=== PATIENT | female | born 1965 | race Caucasian/White ===

== ENCOUNTER 2024-10-25 17:05 | Inpatient (IN) | payer BC, MEDICAID ==
[~2024-10-25] VITALS: Ht 165.1 cm; Wt 85.2 kg
[~2024-10-25 17:05] MED LIST: ATOR10TA70 PO; BACL20TA PO; BUDE10.2 INH; CARV3.122 PO; CEFD300C3 PO; ESCI20TA39 PO; EZET10TA48 PO; FURO-150 PO; LISI30TA4 PO; TRAZ-251 PO; VITE1000C PO
--- NOTE | 2024-10-25 17:21 | Physician Documentation ---
History of Present Illness ~ Stated Complaint: SOB Time Seen by MD: 17:12 HPI 58Year old female with a history of pneumonia presents to be presents via EMS for concerns over hypoxia diarrhea and vomiting x2 days. EMS indicated they had a hard time getting an SpO2 upon arrival due to patient's extremities being cold. Put her on supplemental oxygen 2 L/min and was able to get the patient's SpO2 to read around 90-95.Pt.was tripoding a upon arrival Medication Reconciliation Allergies: Coded Allergies: codeine (Verified Allergy, Intermediate, RASH, 01/24/24) hydrocodone (Verified Adverse Reaction, Mild, "WIRES ME OUT", 01/24/24) Scheduled Atorvastatin Calcium (Atorvastatin Calcium), 1 TAB PO HS, (Reported) Baclofen (Baclofen), 1 TAB PO HS, (Reported) Carvedilol (Coreg), 1 TAB PO Q12H, (Reported) Furosemide (Lasix), 20 MG PO DAILY Melatonin (Melatonin), 1 TAB PO HS, (Reported) Trazodone HCl (Trazodone HCl), 1 TAB PO HS, (Reported) Vitamin E (VITAMIN E capsule), 1,000 UNIT PO DAILY, (Reported) Scheduled PRN Acetaminophen (Acetaminophen), 1 TAB PO Q6H PRN PRN for pain or fever, (Reported) Miscellaneous Medications Celecoxib (Celebrex), 200 MG PO, (Reported) Discontinued Medications Acetaminophen (Tylenol), 1 TAB PO QDAY PRN PRN for pain or fever, (Reported) Discontinued Reason: Prescription changed Budesonide/Formoterol Fumarate (Symbicort 160-4.5 Mcg Inhaler), 2 PUFFS INH Q12H Discontinued Reason: patient no longer taking Cefdinir (Cefdinir), 1 CAP PO Q12H Discontinued Reason: patient no longer taking Escitalopram Oxalate* (Lexapro*), 1 TAB PO DAILY, (Reported) Discontinued Reason: patient no longer taking Ezetimibe (Ezetimibe), 1 TAB PO DAILY, (Reported) Discontinued Reason: patient no longer taking Lisinopril (Lisinopril), 1 TAB PO DAILY Discontinued Reason: patient no longer taking Review of Systems All Other Systems at this time: Reviewed and Negative ROS As stated above in the HPI, otherwise all systems are reviewed and negative. Physical Exam Physical Exam General: Alert and ill-appearing the increased respiratory effort Respiratory: Moderate respiratory distress, diminished bilaterally with crackles on the right side Cardiovascular: Regular rate and rhythm, no murmurs. Gastrointestinal: Soft, nontender, nondistended. Bowels sounds present. Extremities: Cold extremities Neurologic: Oriented x4. Psychiatric: Normal mood and affect. Skin: Normal color, warm and dry. No edema, no ecchymosis. Progress Results/Orders Results/Orders Orders - VERO VASQUES STONEMASON HELPER Monitor (10/25/24 17:14) Saline Lock (10/25/24 17:14) Oxygen (10/25/24 17:14) Chest,Two Views (10/25/24 17:57) Culture Blood (10/25/24 17:21) Svn Treatment (10/25/24 17:23) Piperacillin/Tazo 4.5gm/100ml (Zosyn 4.5 (10/25/24 20:00) Page Hospitalist (10/25/24 ) Page Hospitalist (10/25/24 ) Heparin 10,000 Unit/Ml 1ml (Heparin 10,0 (10/25/24 19:20) Cbc/Diff (10/26/24 03:00) Cbc/Diff (10/27/24 03:00) Cbc/Diff (10/28/24 03:00) Cbc/Diff (10/29/24 03:00) Cbc/Diff (10/30/24 03:00) Completed Orders - VERO VASQUES STONEMASON HELPER Cbc/Diff (10/25/24 17:14) PBNP (10/25/24 17:14) Electrocardiogram (10/25/24 17:14) CMP (10/25/24 17:14) Hs Troponin I W Calculations (10/25/24 17:14) Hs Troponin I W Calculations (10/25/24 19:14) Chest,Two Views (10/25/24 17:57) Lacticsepsis (10/25/24 17:21) Ipratropium/Albuterol Nebule (Ipratrop/A (10/25/24 17:35) Ipratropium/Albuterol Nebule (Ipratrop/A (10/25/24 17:38) Normal Saline 1000ml (Sodium Chloride 10 (10/25/24 18:30) Pt Inr (10/25/24 19:19) PTT (10/25/24 19:19) Cbc/Diff (10/25/24 19:19) Heparin 25,000 Unit/250ml Bag (Heparin 2 (10/25/24 19:20) Medications Received in ER Medications (Trade) Dose Ordered Sig/Polo Route PRN Reason Start Time Stop Time Status Last Admin Dose Admin (ipratrop/ albuterol 0.5-3(2.5) MG/3ml nebule) 3 ml ONCE PRN NEB SOB or wheezing 10/25/24 17:38 10/25/24 21:11 DC 10/25/24 17:42 3 ML (sodium chloride 1000ml IV soln) 2,000 ml ONCE ONCE IVB 10/25/24 18:30 10/25/24 18:31 DC 10/25/24 19:08 2,000 ML (heparin 10,000 unit/ml 1ml inj) bolus for correct... PRN PRN IV per protocol-CARDIAC 10/25/24 19:20 10/25/24 21:21 4,000 UNITS Vital Signs 10/25/24 10/25/24 10/25/24 17:19 17:43 17:49 Temp 84.0 Pulse 75 78 74 Resp 20 19 19 B/P (MAP) 121/84 Pulse Ox 95 94 93 O2 Delivery Nasal Cannula* Nasal Cannula* O2 Flow Rate 4 5 FiO2 36 40 Laboratory Tests Test 10/25/24 17:52 White Blood Count 18.8 H Red Blood Count 4.31 Hemoglobin 15.1 Hematocrit 46.1 H Mean Corpuscular Volume 107.1 H Mean Corpuscular Hemoglobin 35.2 H Mean Corpuscular Hemoglobin Concent 32.8 L Red Cell Distribution Width 15.8 H Platelet Count 256 Mean Platelet Volume 9.8 Neutrophils (%) (Auto) 88.9 H Lymphocytes (%) (Auto) 9.0 L Monocytes (%) (Auto) 1.9 L Eosinophils (%) (Auto) 0 Basophils (%) (Auto) 0.2 Neutrophils # (Auto) 16.7 H Lymphocytes # (Auto) 1.7 Monocytes # (Auto) 0.3 Eosinophils # (Auto) 0.0 Basophils # (Auto) 0.0 CBC Comment Prothrombin Time 10.8 INR International Normalized Ratio 1.1 Activated Partial Thromboplast Time 23 Coagulation Comments Sodium Level 142 Potassium Level 4.4 Chloride Level 103 Carbon Dioxide Level 18.8 L Anion Gap 20 H Blood Urea Nitrogen 23 H Creatinine 2.08 H Estimated GFR/1.73 m2 24 BUN/Creatinine Ratio 11.1 Glucose Level 145 H Lactic Acid Level 5.0 *H Calcium Level 10.4 H Total Bilirubin 0.9 Aspartate Amino Transf (AST/SGOT) 2541 H Alanine Aminotransferase (ALT/SGPT) 1841 H Alkaline Phosphatase 78 Troponin I High Sensitivity 2016 *H Pro-B-Type Natriuretic Peptide 72350 H Total Protein 7.7 Albumin 4.1 Globulin 3.6 Albumin/Globulin Ratio 1.1 Chemistry Comments Medical Decision Making Findings PATIENT'S X-RAY AND CT BOTH INDICATED MULTILOBAR PNEUMONIA. ADDITIONALLY P [facility]ORATORY VALUES SHOWED GROSS ELEVATIONS. PATIENT HAD ELEVATED LACTIC WHITE COUNT IN THE 28. ADDITIONALLY PATIENT HAD ELEVATED TROPONINS AND THE 20+ 1000 PROBNP. LIVER ENZYMES INTO THE TWO THOUSANDS.. REQUESTING IMMEDIATE HOSPITALIZATION. Arnav HERRERA PATIENT ON ZOSYN FOR PNEUMONIA Departure Disposition: ADMITTED INPATIENT Impression: Primary Impression: Respiratory distress Additional Impression: Pneumonia Referrals: NO PRIMARY CARE PROVIDER (PCP) Signature Scribe Signature: s Attestation: The note accurately reflects work and decisions made by me.Vero Vasques - STONEMASON HELPER 10/25/24 17:20 VERO VASQUES NP October 25, 2024 17:21
--- NOTE | 2024-10-25 17:27 | ELECTROCARDIOGRAPH REPORT ---
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 Anand Lazo Measurements Intervals [place] Rate: 69 P: 30 AK: 165 QRS: 9 QRSD: 101 T: 180 QT: 467 QTc: 501 Interpretive Statements Sinus rhythm Borderline low voltage, extremity leads Abnormal T, consider ischemia, diffuse leads Electronically Signed On 10-31-2024 13:45:[address] Anand Lazo Please click the below link to view image of tracing.
[2024-10-25] MEDS ORDERED: ipratropium/albuterol 3ml nebule NEB PRN (17:35)
[2024-10-25] MEDS: ipratropium/albuterol 3ml nebule NEB PRN (17:42)
[2024-10-25 17:43] VITALS: PULSE 78; RESP 19; O2SAT 94
[2024-10-25 17:49] VITALS: PULSE 74; RESP 19; O2SAT 93
--- NOTE | 2024-10-25 18:07 | RADIOLOGY REPORT ---
CHEST RADIOGRAPH Indication: SOB Technique: Frontal and lateral view of the chest was obtained Comparison: None FINDINGS: Lines and Tubes: None Lungs: Multifocal pneumonia throughout both lungs. Pleura: No effusion. No pneumothorax. Cardiomediastinal contours: Unremarkable Bones: Unremarkable IMPRESSION: 1. Multifocal pneumonia throughout both lungs.
[2024-10-25 18:28] LABS: BASOPHILS % (AUTO) 0.2 % (0-1); EOSINOPHILS % (AUTO) 0 % (0-6); HEMATOCRIT 46.1 % (35.0-45.0); HEMOGLOBIN 15.1 g/dl (12.0-16.0); LYMPHOCYTES # (AUTO) 1.7 X10'3 (1.1-4.8); MEAN CORPUSCULAR HEMOGLOBIN 35.2 PG (27.0-31.0); MEAN CORPUSCULAR HGB CONC 32.8 g/dL (33.0-36.5); MEAN CORPUSCULAR VOLUME 107.1 FL (78-98); MEAN PLATELET VOLUME 9.8 FL (7.4-10.4); MONOCYTES # (AUTO) 0.3 X10'3 (0-0.9); MONOCYTES % (AUTO) 1.9 % (2-12); NEUTROPHILS # (AUTO) 16.7 X10'3 (1.8-7.7); NEUTROPHILS % (AUTO) 88.9 % (42-75); PLATELET COUNT 256 X10'3 (140-440); RED BLOOD COUNT 4.31 X10'6 (4.20-5.60); RED CELL DISTRIBUTION WIDTH 15.8 % (11.5-14.5); WHITE BLOOD COUNT 18.8 X10'3 (4.5-11.0)
[2024-10-25 18:49] LABS: ALBUMIN 4.1 G/DL (3.4-5.0); ALBUMIN/GLOBULIN RATIO 1.1 (1.1-1.5); ALKALINE PHOSPHATASE 78 IU/L (46-116); ANION GAP 20 (8-16); BILIRUBIN,TOTAL 0.9 MG/DL (0.1-1.0); BLOOD UREA NITROGEN 23 MG/DL (7-18); BUN/CREATININE RATIO 11.1 (10.0-20.0); CALCIUM 10.4 MG/DL (8.5-10.1); CHLORIDE 103 MMOL/L (99-107); CREATININE 2.08 MG/DL (0.40-0.90); GLUCOSE 145 MG/DL (70-104); POTASSIUM 4.4 MMOL/L (3.5-5.1); PRO BRAIN NATRIURETIC PEPTIDE 26946 PG/ML (0-125); SODIUM 142 MMOL/L (135-145); TOTAL CARBON DIOXIDE 18.8 MMOL/L (24-32); TOTAL PROTEIN 7.7 G/DL (6.4-8.2); eCRCL 26 ML/MIN; eGFR 24 ML/MIN
[2024-10-25 18:54] LABS: ALANINE AMINOTRANSFERASE 1841 U/L (12-78); ASPARTATE AMINO TRANSFERASE 2541 U/L (10-37)
[2024-10-25] MEDS: normal saline 1000ML IV soln IVB ONE (19:08)
[2024-10-25] MEDS ORDERED: magnesium sulf-water 4G/100mL 100 ML IV PRN (19:20)
[2024-10-25] MEDS ORDERED: heparin 10,000 units/1 ML INJ IV ONE (19:20)
[2024-10-25] MEDS ORDERED: potassium Cl 40MEQ/1/2NS 520ml 520 ML IV PRN (19:20)
[2024-10-25] MEDS ORDERED: magnesium sulf-water 2g/50mL 50 ML IV PRN (19:20)
[2024-10-25] MEDS ORDERED: mag hydrox/Alum hydrox/simeth 30ml oral suspension PO PRN (19:20)
[2024-10-25] MEDS ORDERED: magnesium Cl slow-release 64mg tablet PO PRN (19:20)
[2024-10-25] MEDS ORDERED: magnesium hydroxide 30ml (MOM) UD suspension PO PRN (19:20)
[2024-10-25] MEDS ORDERED: heparin 25,000 UNIT/250ml bag 250 ML IV PRN (19:20)
[2024-10-25] MEDS: piperacillin/tazo 4.5gm/100ml 100 ML IV SCH (19:23)
[2024-10-25 19:57] LABS: APTT 23 SECONDS (22-32); INR 1.1 INR; PROTHROMBIN TIME 10.8 SECONDS (9.0-12.0)
[2024-10-25] MEDS: K and/or MAG REPLACEMENT MC SCH (20:00)
[2024-10-25] MEDS ORDERED: heparin, porcine 5000 units/ml vial SQ SCH (20:00)
[2024-10-25] MEDS: docusate sod 100mg capsule PO SCH (20:00)
[2024-10-25 20:23] LABS: ALBUMIN 4.2 G/DL (3.4-5.0); ALBUMIN/GLOBULIN RATIO 1.2 (1.1-1.5); ALKALINE PHOSPHATASE 79 IU/L (46-116); ANION GAP 23 (8-16); BILIRUBIN,TOTAL 0.9 MG/DL (0.1-1.0); BLOOD UREA NITROGEN 24 MG/DL (7-18); BUN/CREATININE RATIO 10.8 (10.0-20.0); CALCIUM 10.4 MG/DL (8.5-10.1); CHLORIDE 102 MMOL/L (99-107); CREATININE 2.23 MG/DL (0.40-0.90); GLUCOSE 135 MG/DL (70-104); SODIUM 142 MMOL/L (135-145); TOTAL CARBON DIOXIDE 16.7 MMOL/L (24-32); TOTAL PROTEIN 7.8 G/DL (6.4-8.2); eCRCL 24 ML/MIN; eGFR 22 ML/MIN
[2024-10-25] MEDS: heparin 10,000 units/1 ML INJ IV ONE (20:25)
[2024-10-25 20:26] LABS: ALANINE AMINOTRANSFERASE 1814 U/L (12-78); ASPARTATE AMINO TRANSFERASE 2431 U/L (10-37); POTASSIUM 4.4 MMOL/L (3.5-5.1)
[2024-10-25] MEDS: MESSAGE TO NURSING IV ONE (20:30)
[2024-10-25 20:44] LABS: BASOPHILS % (AUTO) 0.2 % (0-1); EOSINOPHILS % (AUTO) 0 % (0-6); HEMATOCRIT 46.4 % (35.0-45.0); HEMOGLOBIN 15.3 g/dl (12.0-16.0); LYMPHOCYTES # (AUTO) 1.7 X10'3 (1.1-4.8); LYMPHOCYTES % (AUTO) 9.2 % (21-51); MEAN CORPUSCULAR HEMOGLOBIN 35.6 PG (27.0-31.0); MEAN CORPUSCULAR VOLUME 107.9 FL (78-98); MEAN PLATELET VOLUME 9.4 FL (7.4-10.4); MONOCYTES % (AUTO) 2.2 % (2-12); NEUTROPHILS # (AUTO) 16.1 X10'3 (1.8-7.7); NEUTROPHILS % (AUTO) 88.4 % (42-75); PLATELET COUNT 227 X10'3 (140-440); RED BLOOD COUNT 4.31 X10'6 (4.20-5.60); WHITE BLOOD COUNT 18.3 X10'3 (4.5-11.0)
[2024-10-25 20:45] LABS: MONOCYTES # (AUTO) 0.4 X10'3 (0-0.9)
--- NOTE | 2024-10-25 21:12 | RADIOLOGY REPORT ---
CT SCAN CHEST ABDOMEN AND PELVIS WITH CONTRAST CLINICAL HISTORY: Pneumonia and severe abdominal pain TECHNIQUE: Helical axial images are obtained from the thoracic inlet through the pelvis with intraven ous contrast. Coronal and sagittal reformatted images were generated. One or more of the following ra diation dose reduction techniques were used for this examination: automated exposure control, adjustm ent of the mA and/or kV according to patient size, use of iterative reconstruction technique. COMPARISON: CTA chest 01/24/2024 Dose: CTDI: 18.27. DLP: 1358.5 FINDINGS: CHEST: The thyroid gland is unremarkable. Heart size is within normal limits. No evidence of aortic aneurysm. The pulmonary trunk is normal in size. Prominence of the pulmonary arteries with the bilateral pulmonary arteries measuring up to 2.8 cm. No significant mediastinal lymphadenopathy. No pneumothorax. Patchy ground-glass opacities of bilateral lungs. Small right with Trace left-sided pleural effusion. The soft tissues are unremarkable. No destructive osseous lesions are noted. ABDOMEN AND PELVIS: Mild hepatomegaly with hepatic steatosis. Otherwise, liver, spleen, [id number] distended gall bladder, pancreas and adrenal glands unremarkable. Kidneys, ureters and urinary bladder unremarkable. Uterus and adnexa unremarkable. Stomach is unremarkable. Small bowel loops unremarkable. Appendix is unremarkable. Mild wall thicken ing of the ascending colon, transverse colon and rectum. Otherwise, the large bowel is unremarkable. No evidence of intraperitoneal free air or free fluid. No evidence of aortic aneurysm. Moderate atherosclerotic calcification of the aorta with moderate to heavy atherosclerotic calcification of bilateral iliacs. No evidence of aneurysm. No significant lymphadenopathy. Tiny fat containing umbilical hernia. No destructive osseous lesions are noted. Diffuse demineraliza tion. IMPRESSION: Patchy ground-glass opacities of bilateral lungs which may represent multifocal atypical pneumonia in the right clinical setting with small right and trace left-sided pleural effusion. Mild wall thickening of the ascending colon, transverse colon and rectum. Correlate for mild colitis . Hepatomegaly with hepatic steatosis.
--- NOTE | 2024-10-25 21:13 | HISTORY AND PHYSICAL-Residence ---
History & Physical Providers to CC Resident Creating Document: TIGRE DAVIDSON RES ~ History of Present Illness Reason for Admit\\Complaint: Shortness of breaths History of Present Illness A 58-year-old woman with a medical history of coronary artery disease and hypertension arrived at the emergency department with primary complaints of diarrhea and vomiting lasting for the last 12 hours. The patient reported a sudden onset of diarrhea that began at 10:00 p.m. yesterday, along with 5 episodes of vomiting. The stools were green, foul-smelling, and there were no additional factors that aggravated or alleviated her symptoms. She denied any recent travel or consumption of food from outside sources and reported no sick contacts at home. The patient also mentioned experiencing shortness of breath that began last night after vomiting, which was associated with orthopnea and paroxysmal nocturnal dyspnea. Living at home with a roommate, she stated there were no other exposures to ill individuals. While the patient did not report any substernal chest pain, she described a pain between her shoulder blades rated at 8/10 and severe epigastric pain associated with nausea and vomiting rated at 4/10. She mentioned being diagnosed with hypertension a few years prior and denied any recent myocardial infarction. However, she had undergone an angiogram recently that showed no obstructive lesions. Patient denied recent blood transfusions Her EKG in the emergency department displayed sinus rhythm with abnormal T- waves, and she required 5 liters of oxygen. Primary Care Physician: Dr. Daniela Kc Library Circulation Assistant: Dr. Nikolas [facility]: Dr. Garces Allergies: Coded Allergies: codeine (Verified Allergy, Intermediate, RASH, 01/24/24) hydrocodone (Verified Adverse Reaction, Mild, "WIRES ME OUT", 01/24/24) Home Medications Home Medications Active Symbicort 160-4.5 Mcg Inhaler (Budesonide/Formoterol Fumarate) 160 Mcg-4.5 Mcg/Actuation Hfa.aer.ad 2 Puffs INH Q12H 30 Days Carvedilol 3.125 Mg Tablet 1 Tab PO Q12H 30 Days Lasix (Furosemide) 20 Mg Tablet 20 Mg PO DAILY 30 Days Cefdinir 300 Mg Capsule 1 Cap PO Q12H 4 Days Lisinopril 30 Mg Tablet 1 Tab PO DAILY 30 Days Reported Atorvastatin Calcium 10 Mg Tablet 1 Tab PO HS Escitalopram Oxalate 20 Mg Tablet 1 Tab PO DAILY Trazodone HCl 50 Mg Tablet 1 Tab PO HS Ezetimibe 10 Mg Tablet 1 Tab PO DAILY Baclofen 20 Mg Tablet 1 Tab PO HS VITAMIN E capsule (Vitamin E) 1,000 Unit Capsule 1,000 Unit PO DAILY Past Medical History Past Medical History Hypertension Possible congestive heart failure Severe muscle spasms Coronary artery disease Hyperlipidemia Depression Spinal stenosis of lower back Past Surgical History Surgical History Comment Bilateral TKR Past Social History Social History Comment Smokin-5 cigarettes a day for the past 5 years; quit for for about 10 years prior to that Occasional alcohol use Illicit use of drugs: Marijuana 4 times a week ROS ROS Reviewed in full. All negative except for pertinent positive HPI. Exam Vitals: Vital Signs Date Time Temp Pulse Resp B/P (MAP) Pulse Ox O2 Delivery O2 Flow Rate FiO2 10/25/24 17:49 74 19 93 Nasal Cannula* 5 40 10/25/24 17:19 84.0 121/84 General: Awake , alert, and oriented x4, in apparent distress HEENT: Atraumatic, normocephalic, EOMI, anicteric sclera ; pink conjunctiva Neck: Trachea midline. Supple, full range of motion, no JVD Cardiac: Regular rhythm, regular rate with no murmurs all over the precordium. Respiratory: Equal breath sounds bilaterally, no tachypnea, no wheezing ,rub or rales, Chest wall is symmetric and without deformity. Gastrointestinal: Abdomen symmetric, non-distended, soft, tenderness present in the epigastric region, normal bowel sounds x4 quadrant, normoactive, no hepatosplenomegaly Musculoskeletal: Feeble peripheral pulses, no pedal edema, cold feet Neurological: Speech is clear, alert, and oriented x 4. No motor or sensory deficit, deep tendon reflexes normal, cerebellar intact. Cranial nerves II-XII intact. Skin: Warm and dry Diagnostic Data Last Recorded Lab Results: 10/25/24 1752 10/25/241949 Diagnostic Data: Laboratory Tests Test 10/25/24 17:52 Prothrombin Time 10.8 SECONDS (9.0-12.0) INR International Normalized Ratio 1.1 INR Activated Partial Thromboplast Time 23 SECONDS (22-32) Coagulation Comments Advance Care Planning Advanced Care plannin - 30 Minutes Additional Plan Acute Hypoxemic Respiratory Failure Sepsis secondary to multifocal pneumonia. PSI/PORT Score: 105 (Risk Class IV, 8.29.3% mortality; hospitalization recommended). CURB-65 Score: 2. Chest X-ray: Multifocal pneumonia throughout both lungs. Severe hypothermia (84 F): Initiate warm blankets, heating pads, continue monitoring electrolytes WBC: 18.8, Lactic acid: 5.5. Procalcitonin elevated to 0.73. Urine and blood cultures. Influenza A/B and COVID tests. Oxygen therapy: 5 L/min; titrate or upgrade delivery as needed. IV Methylprednisolone 60 mg Q8H. Zosyn 4.5 g IV Q12H. DuoNeb q.2 hours p.r.n. and q.4 hours scheduled. Signs of respiratory distress present (e.g., accessory muscle use). Titrate oxygen requirements as needed. Initiated vancomycin pharmacy to dose, as recommended by the night marketing content specialist Acute on Chronic Kidney Disease (CKD) Creatinine: 2.23 (baseline: 1.05). BUN: 24. Elevated proBNP: 26,946 (likely secondary to CKD). Hold maintenance fluids; reassess volume status tomorrow. Monitor CMP daily. Ordered urine electrolytes. Transaminitis Possible Etiology: Ischemic colitis versus hepatitis vs iron overload (hemochromatosis). Diarrhea and vomitings (possible gastroenteritis) High anion gap lactic acidosis (Anion gap: 23, Lactic acid: 5.5) Severe midepigastric pain. AST: 2541, ALT: 1841, ALP: Normal. Hepatitis panel ordered. CT abdomen and pelvis ordered. ABG ordered. Lipase levels ordered Initiated Bicarbonate drip, D5W with 3 amps bicarbonate. Stool studies ordered: Ova and parasite, stool leukocyte, C diff Iron studies: Iron, TIBC, ferritin levels ordered Ferritin levels: 3811, pending iron and TIBC levels Consider phlebotomy and ordering deferoxamine 1000 mg IV if diagnosis of hemochromatosis established. Patient will likely need liver biopsy on outpatient basis if labs would point out towards hemochromatosis NSTEMI (Non-ST Elevation Myocardial Infarction) Troponins: 2015, 1900. Atypical presentation: Epigastric pain and pain between the shoulder blades. Elevated proBNP: 26,946. Bilateral basilar crackles. 2D echo in 2023: LVEF 65% Management: Heparin drip: Continue for 24 hours. One dose of IV Lasix 60 mg. Troponins: Recheck. 2D Echo: Ordered. Assess volume status tomorrow to guide use of IV Lasix versus fluids. Ordered Lexiscan, NPO after midnight Consult Cardiology in a.m. Mild hypercalcemia: 10.4 Ionized calcium, PTH, PTHrP ordered, follow up Continue monitoring Suspected Acetaminophen Poisoning Findings: Markedly elevated transaminases (AST and ALT). History of marijuana use. Orders: Acetaminophen levels. Urine toxicology (U tox). ABG. Plan: Initiate N-acetylcysteine if acetaminophen levels are elevated. Hypertension: Continue Carvedilol 3.125 mg b.i.d. Hyperlipidemia: Lipid panel ordered, Continue Atorvastatin 10 mg daily. Spinal stenosis: Continue outpatient management with the Code Status: Full code DVT Prophylaxis: Heparin drip Line/tubes: PIV Nutrition: Heart healthy diet PT: Ordered Prognosis: Guarded Disposition: Move to the ICU This patient has multi organ failure and sepsis at this time and I would favour if patient is admitted to the ICU. I saw and discussed the patient with the resident team Tigre Davidson MD Internal Medicine Resident, PGY-1 Date of Service: October 25, 2024 Billing Provider: CHRISTINE ESCOBEDO MD, GAURAV, RES October 25, 2024 21:13 CHRISTINE ESCOBEDO MD October 26, 2024 06:32
[2024-10-25] MEDS: heparin 25,000 UNIT/250ml bag 250 ML IV PRN (21:14)
[2024-10-25] MEDS ORDERED: ESCI5TAB PO (21:19)
[2024-10-25] MEDS ORDERED: CARV3.12 PO (21:19)
[2024-10-25] MEDS ORDERED: ATOR10TA PO (21:19)
[2024-10-25] MEDS ORDERED: ACET-1008 PO (21:19)
[2024-10-25] MEDS: heparin 10,000 units/1 ML INJ IV PRN (21:21)
[2024-10-25] MEDS ORDERED: CELE-193 PO (21:22)
[2024-10-25] MEDS ORDERED: ACET-1015 PO (21:24)
[2024-10-25] MEDS ORDERED: MELA10TA2 PO (21:26)
[2024-10-25] MEDS: furosemide 10 MG/1 ML 10ml inj IV ONE (21:57)
[2024-10-25] MEDS: sodium bicarbonate 1meq/ml inj 150 ML in dextrose 5%-water 1,000 ML IV SCH (21:58)
[2024-10-25 22:52] LABS: ACETAMINOPHEN < 2.0 UG/ML (10-30); FERRITIN 3811 NG/ML (8-252)
[2024-10-25] MEDS: ipratropium/albuterol 3ml nebule NEB SCH (22:58)
[2024-10-25 22:59] VITALS: PULSE 74; RESP 20; O2SAT 94
[2024-10-25 23:09] VITALS: PULSE 70; RESP 16
[2024-10-26] VITALS (27 sets, daily range): BP systolic 92–133; BP diastolic 55–95; PULSE 66–95; RESP 15–32; TEMP 96.5–98.5; O2SAT 90–100
[2024-10-26] MEDS: methylPREDNISolone sod succ 125mg/2ml vial IV SCH (01:24)
[2024-10-26] MEDS ORDERED: metoprolol tartrate 1mg/ml inj IV PRN (03:05)
[2024-10-26] MEDS ORDERED: nitroGLYCERIN 0.4mg SUBLingual tab SL PRN (03:05)
[2024-10-26] MEDS ORDERED: aminophylline 250mg/10ml inj. IV PRN (03:05)
[2024-10-26] MEDS ORDERED: regadenoson 0.4mg/5ml syringe IV PRN (03:05)
[2024-10-26] MEDS ORDERED: VANCOMYCIN/WATER FOR INJ (PEG) 750MG/150 ML IVPB IV SCH (05:00)
[2024-10-26] MEDS: morphine 2 MG/ML inj. syringe IV ONE (05:15)
[2024-10-26] MEDS: MESSAGE TO NURSING IV ONE (06:04)
[2024-10-26 07:37] LABS: ABG BASE EXCESS -3.6 mmol/L (-2.0-3.0); ABG HCO3 17.3 mmol/L (21.0-28.0); ABG OXYGEN SATURATION 89.1 % (94.0-98.0); ABG PH (T) 7.527 (7.350-7.450); ABG PO2 (T) 47.9 mmHg (83.0-108.0); ALLEN'S TEST POSITIVE; FHHb 10.8 % (0.0-5.0); FLOW 5 L/min; FMetHb 0.1 % (0.0-1.5); FO2Hb 88.1 % (94.0-98.0); MODE NC; PATIENT TEMPERATURE 35.1; TOTAL HEMOGLOBIN 15.3 G/dl (12.0-16.0)
[2024-10-26 07:44] LABS: BASOPHILS % (AUTO) 0.1 % (0-1); EOSINOPHILS % (AUTO) 0.1 % (0-6); HEMATOCRIT 49.1 % (35.0-45.0); HEMOGLOBIN 16.3 g/dl (12.0-16.0); LYMPHOCYTES # (AUTO) 1.3 X10'3 (1.1-4.8); LYMPHOCYTES % (AUTO) 6.1 % (21-51); MEAN CORPUSCULAR HEMOGLOBIN 35.4 PG (27.0-31.0); MEAN CORPUSCULAR HGB CONC 33.3 g/dL (33.0-36.5); MEAN CORPUSCULAR VOLUME 106.3 FL (78-98); MEAN PLATELET VOLUME 10.9 FL (7.4-10.4); MONOCYTES # (AUTO) 0.2 X10'3 (0-0.9); MONOCYTES % (AUTO) 0.7 % (2-12); NEUTROPHILS # (AUTO) 19.8 X10'3 (1.8-7.7); PLATELET COUNT 231 X10'3 (140-440); RED BLOOD COUNT 4.62 X10'6 (4.20-5.60); RED CELL DISTRIBUTION WIDTH 15.5 % (11.5-14.5); WHITE BLOOD COUNT 21.3 X10'3 (4.5-11.0)
[2024-10-26 08:41] LABS: ALBUMIN 4.6 G/DL (3.4-5.0); ALBUMIN/GLOBULIN RATIO 1.1 (1.1-1.5); ALKALINE PHOSPHATASE 82 IU/L (46-116); ANION GAP 23 (8-16); BLOOD UREA NITROGEN 30 MG/DL (7-18); BUN/CREATININE RATIO 13.2 (10.0-20.0); CALCIUM 10.3 MG/DL (8.5-10.1); CHLORIDE 99 MMOL/L (99-107); CHOL/HDL RATIO 2.2 (0.00-4.99); CHOLESTEROL 281 MG/DL (0-200); CREATININE 2.27 MG/DL (0.40-0.90); GLUCOSE 133 MG/DL (70-104); HDL CHOLESTEROL 127 MG/DL (35-60); LDL CHOLESTEROL 119 MG/DL (50-100); LIPASE 26 U/L (16-77); MAGNESIUM 2.1 MG/DL (1.5-2.4); POTASSIUM 3.5 MMOL/L (3.5-5.1); SODIUM 141 MMOL/L (135-145); TOTAL CARBON DIOXIDE 19.2 MMOL/L (24-32); TOTAL PROTEIN 8.9 G/DL (6.4-8.2); TRIGLYCERIDES 110 MG/DL (20-135); eCRCL 24 ML/MIN; eGFR 22 ML/MIN
[2024-10-26 09:16] LABS: ALANINE AMINOTRANSFERASE 2049 U/L (12-78); ASPARTATE AMINO TRANSFERASE 2156 U/L (10-37)
[2024-10-26 09:36] LABS: PLATELET ESTIMATE NORMAL
[2024-10-26 09:40] LABS: LARGE PLATELETS FEW
[2024-10-26 09:51] LABS: HEMOGLOBIN A1C 5.4 % (4.5-6.2)
--- NOTE | 2024-10-26 10:02 | VASCULAR REPORT ---
BILATERAL Lower Extremity Arterial Duplex Date: 10/26/2024 07:42 AM Clinical History: Cold extremities. Feeble pulses bilaterally. Comparison: None Technique: Duplex Doppler evaluation including color Doppler and spectral/pulsed waveform analysis of the lower extremity arteries was performed. Finding: RIGHT: Peak systolic velocities are as follows: SUPERVISORY FORESTER 63 cm/s Deep femoral 35 cm/s SFA proximal 56 cm/s SFA mid-portion 56 cm/s SFA distal 52 cm/s Popliteal 28 cm/s Posterior tibial 27 cm/s Anterior tibial 33 cm/s Peroneal 32 cm/s Dorsalis pedis not imaged The waveforms are triphasic. LEFT: Peak systolic velocities are as follows: SUPERVISORY FORESTER 41 cm/s Deep femoral 35 cm/s SFA proximal 59 cm/s SFA mid-portion 49 cm/s SFA distal 85 cm/s Popliteal 28 cm/s Posterior tibial 30 cm/s Anterior tibial 24 cm/s Peroneal 20 cm/s Dorsalis pedis not imaged The waveforms are triphasic. REFERENCE VALUES, [facility]) vascular Imaging Lab Criteria: Peak systolic velocity ranges (in cm/sec) are as follows: <150 cm/s - <20 % stenosis 150-200 cm/s - 20-49% stenosis 200-300 cm/s - 50-75% stenosis >300 cm/s -> 75% stenosis IMPRESSION: 1. Bilateral dorsalis pedis arteries not imaged. Otherwise, no evidence of high-grade stenosis or oc clusion in the bilateral lower extremities. Triphasic normal waveforms in both lower extremities.
[2024-10-26 10:33] LABS: % IRON SATURATION 28 % (11-46); IRON 91 UG/DL (49-151); TOTAL IRON BINDING CAPACITY 323 UG/DL (259-388)
[2024-10-26] MEDS: vancomycin inj. 750 MG in normal saline 250ml IV soln 250 ML IV SCH (11:31)
[2024-10-26] MEDS: carVEDilol 3.125mg tablet PO SCH (11:34)
[2024-10-26] MEDS: acetaminophen 325mg tablet PO PRN (11:34)
[2024-10-26] MEDS ORDERED: morphine 2 MG/ML inj. syringe IV PRN (14:05)
--- NOTE | 2024-10-26 14:42 | PROGRESS NOTE- Residence ---
Progress Note - Resident Providers to CC Resident Creating Document: LUIS VALENCIA RES CC: THERON DODD MD ~ Antibiotic Timeout Antibiotic Ordered?: Yes Subjective Patient examined at bedside. Patient is in acute respiratory distress. Patient's saturations were not being maintained with nasal cannula therefore being transitioned to high-flow nasal cannula. Objective Vital Signs Date Time Temp Pulse Resp B/P (MAP) Pulse Ox O2 Delivery O2 Flow Rate FiO2 10/26/24 11:18 84 21 95 10.0 10/26/24 11:17 High Flow [place] 10/26/24 11:06 58 10/26/24 11:00 96.9 133/93 (106) Result Diagram: 10/26/24 0650 10/26/24 0650 General: Alert, awake, oriented, in acute distress HEENT: PERRLA, no icterus, pallor, lymphadenopathy, carotid bruit Respiratory system: Bilateral vesicular breath sounds heard, bilateral diffuse crackles heard CVS: S1-S2 heard, no murmurs/rubs/gallop GI: Soft, nontender, no organomegaly, no guarding/rigidity, bowel sounds present Neuro: No focal neurological deficits present Extremities: No edema cyanosis clubbing/deformities Skin: Warm and dry Coagulation Studies Laboratory Tests Test 10/25/24 17:52 10/26/24 13:05 Prothrombin Time 10.8 SECONDS (9.0-12.0) INR International Normalized Ratio 1.1 INR Activated Partial Thromboplast Time 23 SECONDS (22-32) APTT (Heparin Protocol) 64 SECONDS (45-60) H Coagulation Comments Assessment Assessment A 58-year-old female with past medical history of CAD and HTN presented to the ED with complaints of diarrhea and vomitings with the last 12 hours. Patient also reported shortness of breaths. Patient is admitted for the evaluation and management of acute hypoxemic respiratory failure secondary to multifocal pneumonia, sepsis on POA, transaminitis, type 2 DC Plan Plan Acute Hypoxemic Respiratory Failure Sepsis secondary to multifocal pneumonia. CURB-65 Score: 2. Currently on high-flow nasal cannula with oxygen flow rate [address]: Patchy ground-glass opacities of bilateral lungs which may represent multifocal atypical pneumonia in the right clinical setting with small right and trace left-sided pleural effusion. ABG: Respiratory alkalosis Elevated WBC and procalcitonin, lactic acid normalized COVID negative Follow up with blood and urine cultures IV Methylprednisolone 60 mg Q8H. Switched antibiotics to IV ceftriaxone and azithromycin DuoNeb q.2 hours p.r.n. and q.4 hours scheduled. Incentive spirometry and flutter valve Acute on Chronic Kidney Disease (CKD) stage IIIB Creatinine: 2.23 (baseline: 1.05). EGFR: 22 Elevated proBNP: 26,946 (likely secondary to CKD). Continue to monitor BMP Transaminitis, most likely reactive-improving Mild colitis High anion gap lactic acidosis (Anion gap: 23, Lactic acid: 5.5) Severe midepigastric pain. AST: 2541, ALT: 1841, ALP: Normal. Follow up with hepatitis CT abdomen: Correlate for mild colitis Normal Lipase levels Continue Bicarbonate drip, D5W with 3 amps bicarbonate. Follow up with a repeat CMP Elevated ferritin levels secondary to inflammation Continue to monitor cmp Elevated troponins probably secondary to type 2 DC Evaluation for heart failure Elevated proBNP, probably with underlying inflammation and underlying CKD, workup for heart failure pending Downtrending troponins Discontinued heparin drip Follow up with echo Mild hypercalcemia: 10.4 Ionized calcium, PTH, PTHrP ordered, follow up Continue monitoring Suspected Acetaminophen Poisoning, ruled out Hypertension: Patient is soft blood pressures therefore does not require any medications in the moment Hyperlipidemia: LDL: 119, LDL goal less than 70, Continue Atorvastatin 40 mg daily. Spinal stenosis: Continue outpatient management with the Code Status: Full code DVT Prophylaxis: SCD Nutrition: Heart healthy diet Prognosis: Guarded Disposition: Continue care in PCU, continue to monitor vitals Luis Valencia MD Internal Medicine, PGY 1 Date of Service: October 26, 2024 Billing Provider: THERON DODD MD Common Visit Codes: [id number] INP/OBS CARE(HIGH) LUIS VALENCIA, RES October 26, 2024 14:42 THERON DODD MD October 26, 2024 18:59
[2024-10-26] MEDS: morphine 2 MG/ML inj. syringe IV PRN (14:55)
[2024-10-26 16:06] LABS: BILIRUBIN,URINE NEGATIVE (Neg); CLARITY,URINE SLIGHTLY CLOUDY (Clear); COLOR,URINE YELLOW (Yellow); GLUCOSE, URINE NEGATIVE (Neg); KETONES,URINE TRACE mg/dl (Neg); LEUKOCYTE ESTERASE ,URINE NEGATIVE (Neg); NITRITES, URINE NEGATIVE (Neg); OCCULT BLOOD,URINE MODERATE (Neg); PH,URINE 5.5 (4.8-8.0); PROTEIN,URINE NEGATIVE (Neg); UROBILINOGEN,URINE 0.2 E.U/dL (0.2-1.0)
[2024-10-26 16:19] LABS: UA COLLECTION TYPE CLN CATCH MIDSTREAM
[2024-10-26 16:21] LABS: BACTERIA,URINE 1+ /HPF (Neg); CAL OXALATE CRYSTALS FEW /HPF (NEGATIVE); MUCUS STRANDS FEW /LPF (Neg); RENAL CELLS, URINE MODERATE /HPF; SQUAMOUS EPITHELIAL CELL,UR MANY /LPF (FEW); TRANSITIONAL EPI CELLS,URINE MODERATE /HPF; WBC,URINE 0-4 /HPF (0-4)
[2024-10-26 16:22] LABS: FINE GRANULAR CAST 0-3 /LPF (NEGATIVE); YEAST FEW /HPF (NEGATIVE)
[2024-10-26 16:38] LABS: C DIFF ANTIGEN NEGATIVE (NEGATIVE); C DIFF SPECIMEN=DIARRHEA? ACCEPTABLE; C DIFFICILE TOXINS A&B NEGATIVE (Neg)
[2024-10-26 19:01] LABS: BILIRUBIN,TOTAL 0.8 MG/DL (0.1-1.0); CHLORIDE 102 MMOL/L (99-107); SODIUM 141 MMOL/L (135-145)
[2024-10-26 19:16] LABS: ALBUMIN 3.2 G/DL (3.4-5.0); ALKALINE PHOSPHATASE 52 IU/L (46-116); ANION GAP 17 (8-16); BLOOD UREA NITROGEN 35 MG/DL (7-18); BUN/CREATININE RATIO 18.6 (10.0-20.0); CALCIUM 8.9 MG/DL (8.5-10.1); CREATININE 1.88 MG/DL (0.40-0.90); GLUCOSE 158 MG/DL (70-104); TOTAL PROTEIN 6.4 G/DL (6.4-8.2); eCRCL 29 ML/MIN; eGFR 27 ML/MIN
[2024-10-26 19:50] LABS: ALANINE AMINOTRANSFERASE 1644 U/L (12-78); ASPARTATE AMINO TRANSFERASE 1473 U/L (10-37)
[2024-10-26] MEDS: potassium Cl 20 mEq SR tablet PO PRN (19:50)
[2024-10-26] MEDS: baclofen 10mg tablet PO SCH (20:00)
[2024-10-26] MEDS: Melatonin 3mg tablet PO SCH (20:00)
[2024-10-26] MEDS: traZODone 50mg tablet PO SCH (20:00)
[2024-10-26] MEDS: atorvastatin 10mg tablet PO SCH (20:01)
[2024-10-26] MEDS ORDERED: atorvastatin 10mg tablet PO SCH (21:00)
[2024-10-27] VITALS (21 sets, daily range): BP systolic 96–112; BP diastolic 71–82; PULSE 18–95; RESP 14–32; TEMP 96.9–98.1; O2SAT 87–98
[2024-10-27] MEDS: CefTRIAXone 2gm/D5W 50ml BAG 50 ML IV SCH (08:15)
[2024-10-27 08:42] LABS: BASOPHILS # (AUTO) 0.1 X10'3 (0-0.2); BASOPHILS % (AUTO) 0.3 % (0-1); EOSINOPHILS % (AUTO) 0 % (0-6); HEMATOCRIT 38.2 % (35.0-45.0); HEMOGLOBIN 12.9 g/dl (12.0-16.0); LYMPHOCYTES # (AUTO) 0.7 X10'3 (1.1-4.8); LYMPHOCYTES % (AUTO) 3.4 % (21-51); MEAN CORPUSCULAR HEMOGLOBIN 35.4 PG (27.0-31.0); MEAN CORPUSCULAR HGB CONC 33.8 g/dL (33.0-36.5); MEAN CORPUSCULAR VOLUME 104.7 FL (78-98); MEAN PLATELET VOLUME 10.5 FL (7.4-10.4); MONOCYTES # (AUTO) 0.4 X10'3 (0-0.9); MONOCYTES % (AUTO) 1.8 % (2-12); NEUTROPHILS # (AUTO) 19.4 X10'3 (1.8-7.7); NEUTROPHILS % (AUTO) 94.5 % (42-75); PLATELET COUNT 187 X10'3 (140-440); RED BLOOD COUNT 3.64 X10'6 (4.20-5.60); RED CELL DISTRIBUTION WIDTH 15.6 % (11.5-14.5); WHITE BLOOD COUNT 20.5 X10'3 (4.5-11.0)
[2024-10-27 09:46] LABS: ALBUMIN 3.2 G/DL (3.4-5.0); ALKALINE PHOSPHATASE 47 IU/L (46-116); ANION GAP 12 (8-16); ASPARTATE AMINO TRANSFERASE 704 U/L (10-37); BLOOD UREA NITROGEN 28 MG/DL (7-18); CALCIUM 9.1 MG/DL (8.5-10.1); CHLORIDE 100 MMOL/L (99-107); CREATININE 1.27 MG/DL (0.40-0.90); GLUCOSE 131 MG/DL (70-104); MAGNESIUM 1.8 MG/DL (1.5-2.4); SODIUM 141 MMOL/L (135-145); TOTAL CARBON DIOXIDE 28.7 MMOL/L (24-32); TOTAL PROTEIN 6.5 G/DL (6.4-8.2); eCRCL 42 ML/MIN; eGFR 43 ML/MIN
[2024-10-27 09:52] LABS: ALANINE AMINOTRANSFERASE 1271 U/L (12-78); POTASSIUM 3.4 MMOL/L (3.5-5.1)
[2024-10-27 09:53] LABS: ABG BASE EXCESS 5.5 mmol/L (-2.0-3.0); ABG HCO3 27.1 mmol/L (21.0-28.0); ABG OXYGEN SATURATION 90.6 % (94.0-98.0); ABG PCO2 (T) 29.4 mmHg (32.0-45.0); ABG PH (T) 7.581 (7.350-7.450); ABG PO2 (T) 53.9 mmHg (83.0-108.0); ALLEN'S TEST POSITIVE; FCOHb 0.6 % (0.5-1.5); FHHb 9.3 % (0.0-5.0); FMetHb 0.3 % (0.0-1.5); FO2Hb 89.8 % (94.0-98.0); MODE HIGH FLOW; PATIENT TEMPERATURE 36.2; TOTAL HEMOGLOBIN 13.3 G/dl (12.0-16.0)
[2024-10-27] MEDS: potassium Cl 20 mEq SR tablet PO PRN (10:17)
[2024-10-27] MEDS: azithromycin/NS 500mg/250ml 250 ML IV SCH (11:03)
[2024-10-27] MEDS: normal saline 1000ml 1,000 ML IV SCH (11:45)
[2024-10-27] MEDS: ibuprofen 200mg tablet PO PRN (12:25)
[2024-10-27] MEDS: ondansetron/PF 4mg/2ml inj IV PRN (14:25)
[2024-10-27] MEDS: cyanocobalamin 1,000 mcg/ml inj SQ ONE (14:25)
--- NOTE | 2024-10-27 16:17 | PROGRESS NOTE- Residence ---
Progress Note - Resident Providers to CC Resident Creating Document: JOJO VALENCIA, KAREN CC: DEBORAH DUONG MD ~ Antibiotic Timeout Antibiotic Ordered?: Yes Subjective Patient examined at bedside. Patient feels relatively better, has increased high-flow requirements to 15 L. patient had echo findings of anterior wall motion abnormalities that is new from her previous echo in January 2024, drop in EF to 20% from normal EF in 2023. Her health insurance specialist Dr. Connor is consulted Objective Vital Signs Date Time Temp Pulse Resp B/P (MAP) Pulse Ox O2 Delivery O2 Flow Rate FiO2 10/27/24 15:39 97.6 95 22 112/82 (92) 94 High Flow Nasal Cannula 15.0 10/27/24 11:31 71 Result Diagram: 10/27/2415 10/27/24822 General: Alert, awake, oriented, in acute distress HEENT: PERRLA, no icterus, pallor, lymphadenopathy, carotid bruit Respiratory system: Bilateral vesicular breath sounds heard, bilateral diffuse crackles heard CVS: S1-S2 heard, no murmurs/rubs/gallop GI: Soft, nontender, no organomegaly, no guarding/rigidity, bowel sounds present Neuro: No focal neurological deficits present Extremities: No edema cyanosis clubbing/deformities Skin: Warm and dry Coagulation Studies Laboratory Tests Test 10/25/24 17:52 10/26/24 13:05 Prothrombin Time 10.8 SECONDS (9.0-12.0) INR International Normalized Ratio 1.1 INR Activated Partial Thromboplast Time 23 SECONDS (22-32) APTT (Heparin Protocol) 64 SECONDS (45-60) H Coagulation Comments Assessment Assessment A 58-year-old female with past medical history of CAD and HTN presented to the ED with complaints of diarrhea and vomitings with the last 12 hours. Patient also reported shortness of breaths. Patient is admitted for the evaluation and management of acute hypoxemic respiratory failure secondary to multifocal pneumonia, sepsis on POA, transaminitis, type 2 PA Plan Plan Acute Hypoxemic Respiratory Failure Sepsis secondary to multifocal pneumonia. CURB-65 Score: 2. Currently on high-flow nasal cannula with oxygen flow rate 15 L Repeat ABG: Respiratory alkalosis (improving relatively) Elevated WBC, improving, procalcitonin normal, lactic acid improving Blood and urine cultures negative so far IV Methylprednisolone 60 mg Q8H. Continue IV ceftriaxone (day 1/6) and azithromycin (day 1/3) DuoNeb q.2 hours p.r.n. and q.4 hours scheduled. Incentive spirometry and flutter valve Acute on Chronic Kidney Disease (CKD) stage IIIB (baseline: 1.05). EGFR: 22 Creatinine, improving Continue to monitor BMP Transaminitis, most likely reactive-improving Mild colitis High anion gap lactic acidosis, resolved Downtrending AST and ALT Follow up with hepatitis Pancreatitis, ruled out Bicarb drip discontinued Continue to monitor cmp Elevated troponins probably secondary to type 2 PA Acute on chronic worsening of Heart failure with a reduced ejection fraction, EF: 15-20 % Can not exclude underlying CAD Elevated proBNP, probably secondary to a combination of underlying CKD and heart failure Echo: Anterior wall motion abnormalities of the left ventricle and EF: 15-20% Started on aspirin 81 mg GDM T: Carvedilol 3.125 mg b.i.d., losartan 25 mg, Jardiance 10 mg, spironolactone [address] Connor, awaiting recommendations. Patient might benefit from cardiac catheterization but very unlikely that the patient might be able to lie flat in the bed during the procedure. Mild hypercalcemia, resolved Probably secondary to hemoconcentration Suspected Acetaminophen Poisoning, ruled out Hypertension: Patient is soft blood pressures therefore does not require any medications in the moment Hyperlipidemia: LDL: 119, LDL goal less than 70, Continue Atorvastatin 40 mg daily. Spinal stenosis: Continue outpatient management with the Code Status: Full code DVT Prophylaxis: SCD Nutrition: Heart healthy diet Anticoagulation: Aspirin Prognosis: Guarded Disposition: Continue care in PCU, awaiting Cardiology recommendations Jojo Valencia MD Internal Medicine, PGY 1 Date of Service: October 27, 2024 Billing Provider: DEBORAH DUONG MD Common Visit Codes: [id number] INP/OBS CARE(HIGH) JOJO VALENCIA, RES October 27, 2024 16:17 DEBORAH DUONG MD Nov 03, 2024 16:27
--- NOTE | 2024-10-27 18:12 | CARDIOLOGY REPORT ---
APPROVED REPORT EXAM: Comprehensive 2D, Doppler, and color-flow Echocardiogram. Patient Location: 302 Heart Rate: 89 bpm Rhythm: NSR Indications CONGESTIVE HEART FAILURE HS TROPONIN 1960, 1796, 1256 ELEVATED PRO BNP 26, 946 SHORTNESS OF BREATHG RPG PROGRAMMER: Glendy PETERSON MD PRIOR ECHOCARDIOGRAM: EF 67%; M av SCLEROSIS; m MV THICKENING; TR mr; TR tr; rvsp 40 MMhG 2D Dimensions RVDd 2.9 cm IVSd 0.9 (0.7-1.1cm) LVDd 4.9 cm PWd 1.1 (0.7-1.1cm) IVSs 1.2 (0.8-1.2cm) LVDs 4.5 (2.5-4.0cm) PWs 1.1 (0.8-1.2cm) LVOT Diameter 2.02 (1.8-2.4cm) LVEF(%) 18.2 (>50%) FS (%) 8.2 % SV 20.3 ml CO 2.4 L/min M-Mode Dimensions Left Atrium(MM) 3.11 (2.5-4.0cm) Aortic Root 3.15 (2.2-3.7cm) Aortic Cusp Exc 1.87 (1.5-2.0cm) Aortic Valve AoV Peak Tanmay. 98.5 cm/s AoV VTI 17.9 cm AO Peak GR. 3.9 mmHg AO Mean GR. 2 mmHg LVOT VTI 11.43 cm LVOT Peak Tanmay. 64.4 cm/s SILVIA(VTI)/BSA 2.05 cm2/m2 SILVIA (VTI) 2.05 cm2 Mitral Valve MV E Velocity 55.2 cm/s MV Peak Gr. 2 mmHg MV DECEL TIME 232 ms MV A Velocity 88.2 cm/s MV PHT 64 ms E/A Ratio 0.6 MVA (PHT) 3.44 cm2 MV VMax68.9 cm/s Tricuspid Valve TR P. Velocity 303 cm/s RAP ESTIMATE 15 mmHg TR Peak Gr. 37 mmHg RVSP 52 mmHg LEFT VENTRICLE Normal LV size and wall thickness. Overall systolic function is severely reduced. Basal LV moves slig htly better than mid to distal LV, specifally Anterior Wall. Significant change from previous echo with EF 67%. LVEF is 20-25%. RIGHT VENTRICLE Right ventricle is mildly dilated. The right ventricular systolic function is normal. RVSP 52 mmHg. T he right ventricular systolic function is normal. ATRIA Left atrium is mildly dilated. Right atrium is mildly dilated. AORTIC VALVE Trileaflet AV appears mildly sclerotic without stenosis. No insufficiency. MITRAL VALVE Mitral valve is grossly normal in structure. Mild regurgitation TRICUSPID VALVE TV appears structurally normal with moderate regurgitation. PULMONIC VALVE Normal PV without stenosis with mild insufficiency. GREAT VESSELS The aortic root is normal in size. IVC is dilated and collapses less than 50% with inspiration. PERICARDIUM Normal pericardium. No effusion. Other Information Study Quality: Adequate Conclusion Normal LV size and wall thickness. Overall systolic function is severely reduced. Basal LV moves sli ghtly better than mid to distal LV, specifally Anterior Wall. LVEF is 20-25%. Significant change from previous echo 01/24/2024 with EF 67%. Right ventricle is mildly dilated. The right ventricular systolic function is normal. RVSP 52 mmHg. Left atrium is mildly dilated. Right atrium is mildly dilated. Trileaflet AV appears mildly sclerotic without stenosis. No insufficiency. Mitral valve is grossly normal in structure. Mild regurgitation TV appears structurally normal with moderate regurgitation. Normal PV without stenosis with mild insufficiency. Normal pericardium. No effusion.
[2024-10-27] MEDS: aspirin 81mg, enteric-coated 1 TAB TABLET.DR PO SCH (19:07)
[2024-10-27] MEDS: spironolactone 25 MG tablet PO SCH (19:11)
[2024-10-27] MEDS: EMPAGLIFLOZIN 10 MG TABLET PO SCH (19:36)
[2024-10-27 19:37] LABS: CREATININE 1.21 MG/DL (0.40-0.90); POTASSIUM 3.7 MMOL/L (3.5-5.1); eCRCL 44 ML/MIN; eGFR 45 ML/MIN
[2024-10-27] MEDS ORDERED: vancomycin/NS 1 GM ADD-VANTAGE 250 ML IV SCH (20:00)
[2024-10-28] VITALS (23 sets, daily range): BP systolic 87–124; BP diastolic 41–90; PULSE 72–100; RESP 16–24; TEMP 96.9–97.8; O2SAT 89–98
[2024-10-28 07:10] LABS: BASOPHILS % (AUTO) 0.1 % (0-1); EOSINOPHILS % (AUTO) 0 % (0-6); HEMATOCRIT 34.1 % (35.0-45.0); HEMOGLOBIN 11.4 g/dl (12.0-16.0); LYMPHOCYTES # (AUTO) 0.9 X10'3 (1.1-4.8); LYMPHOCYTES % (AUTO) 5.6 % (21-51); MEAN CORPUSCULAR HEMOGLOBIN 35.3 PG (27.0-31.0); MEAN CORPUSCULAR HGB CONC 33.3 g/dL (33.0-36.5); MEAN CORPUSCULAR VOLUME 105.9 FL (78-98); MEAN PLATELET VOLUME 10.9 FL (7.4-10.4); MONOCYTES # (AUTO) 0.4 X10'3 (0-0.9); MONOCYTES % (AUTO) 2.3 % (2-12); NEUTROPHILS # (AUTO) 14.7 X10'3 (1.8-7.7); PLATELET COUNT 144 X10'3 (140-440); RED BLOOD COUNT 3.22 X10'6 (4.20-5.60); RED CELL DISTRIBUTION WIDTH 15.7 % (11.5-14.5)
[2024-10-28 07:12] LABS: HBSAG SCREEN Negative (Negative); HEP A AB, IGM Negative (Negative); HEP B CORE AB, IGM Negative (Negative); HEPATITIS C VIRUS ANTIBODY Non Reactive (Non Reactive)
[2024-10-28 07:16] LABS: ALANINE AMINOTRANSFERASE 908 U/L (12-78); ALBUMIN 2.9 G/DL (3.4-5.0); ALBUMIN/GLOBULIN RATIO 0.9 (1.1-1.5); ALKALINE PHOSPHATASE 74 IU/L (46-116); ANION GAP 7 (8-16); ASPARTATE AMINO TRANSFERASE 391 U/L (10-37); BILIRUBIN,TOTAL 0.9 MG/DL (0.1-1.0); BLOOD UREA NITROGEN 30 MG/DL (7-18); BUN/CREATININE RATIO 21.6 (10.0-20.0); CALCIUM 8.6 MG/DL (8.5-10.1); CHLORIDE 100 MMOL/L (99-107); CREATININE 1.39 MG/DL (0.40-0.90); GLUCOSE 117 MG/DL (70-104); MAGNESIUM 1.9 MG/DL (1.5-2.4); POTASSIUM 3.9 MMOL/L (3.5-5.1); SODIUM 140 MMOL/L (135-145); TOTAL CARBON DIOXIDE 32.9 MMOL/L (24-32); TOTAL PROTEIN 6.2 G/DL (6.4-8.2); eCRCL 39 ML/MIN; eGFR 39 ML/MIN
[2024-10-28] MEDS: losartan 25mg tablet PO SCH (08:00)
[2024-10-28] MEDS ORDERED: furosemide 40mg/4ml inj IV ONE (10:30)
[2024-10-28 11:02] LABS: ABG BASE EXCESS 2.5 mmol/L (-2.0-3.0); ABG HCO3 26.6 mmol/L (21.0-28.0); ABG OXYGEN SATURATION 96.2 % (94.0-98.0); ABG PH (T) 7.451 (7.350-7.450); ABG PO2 (T) 86.1 mmHg (83.0-108.0); ALLEN'S TEST POSITIVE; FCOHb 0.5 % (0.5-1.5); FHHb 3.8 % (0.0-5.0); FLOW 20 L/min; FMetHb 0.3 % (0.0-1.5); FO2Hb 95.4 % (94.0-98.0); MODE HIGH FLOW; TOTAL HEMOGLOBIN 12.1 G/dl (12.0-16.0)
[2024-10-28] MEDS: furosemide 40mg/4ml inj IV ONE (11:06)
[2024-10-28] MEDS: morphine 4 MG/ML inj SYRINge IV PRN (14:47)
--- NOTE | 2024-10-28 15:15 | PROGRESS NOTE- Residence ---
Progress Note - Resident Providers to CC Resident Creating Document: JOJO VALENCIA RES CC: DEBORAH DUNOG MD ~ Antibiotic Timeout Antibiotic Ordered?: Yes Subjective Patient examined at bedside. Patient feels relatively better, but has increased high-flow requirements to 20 L. patient continues to smoke cigarettes at least one pack a day. Objective Vital Signs Date Time Temp Pulse Resp B/P (MAP) Pulse Ox O2 Delivery O2 Flow Rate FiO2 10/28/24 15:03 88 18 High Flow Nasal Cannula 20.0 80 10/28/24 14:57 93 10/28/24 06:00 97.5 87/41 (56) Result Diagram: 10/28/2461810/28/24618 General: Alert, awake, oriented, in acute distress HEENT: PERRLA, no icterus, pallor, lymphadenopathy, carotid bruit Respiratory system: Decreased breath sounds, bilateral diffuse crackles heard, basal Creps CVS: S1-S2 heard, no murmurs/rubs/gallop GI: Soft, nontender, no organomegaly, no guarding/rigidity, bowel sounds present Neuro: No focal neurological deficits present Extremities: No edema cyanosis clubbing/deformities Skin: Warm and dry Coagulation Studies Laboratory Tests Test 10/25/24 17:52 10/26/24 13:05 Prothrombin Time 10.8 SECONDS (9.0-12.0) INR International Normalized Ratio 1.1 INR Activated Partial Thromboplast Time 23 SECONDS (22-32) APTT (Heparin Protocol) 64 SECONDS (45-60) H Coagulation Comments Assessment Assessment A 58-year-old female with past medical history of CAD and HTN presented to the ED with complaints of diarrhea and vomitings with the last 12 hours. Patient also reported shortness of breaths. Patient is admitted for the evaluation and management of acute hypoxemic respiratory failure secondary to multifocal pneumonia, sepsis on POA, transaminitis, type 2 VA Plan Plan Acute Hypoxemic Respiratory Failure Sepsis secondary to multifocal pneumonia. Acute COPD exacerbation CURB-65 Score: 2. Currently on high-flow nasal cannula with oxygen flow rate 20 L/FiO2 50% Repeat ABG: Normal Elevated WBC, improving, procalcitonin normal, lactic acid improving Blood and urine cultures negative so far IV Methylprednisolone 60 mg Q8H. Continue IV ceftriaxone (day 2/6) and azithromycin (day 2/3) DuoNeb q.2 hours p.r.n. and q.4 hours scheduled. Incentive spirometry and flutter valve Follow up with D-dimer, if positive continue with V/Q scan Repeat COVID test Acute on Chronic Kidney Disease (CKD) stage IIIB (baseline: 1.05). EGFR: 22 Creatinine, improving Continue to monitor BMP Transaminitis, most likely reactive-improving Mild colitis High anion gap lactic acidosis, resolved Downtrending AST and ALT Hepatitis panel negative Pancreatitis, ruled out Bicarb drip discontinued Continue to monitor cmp Elevated troponins probably secondary to type 2 VA Acute on chronic worsening of Heart failure with a reduced ejection fraction, EF: 15-20 % Cor pulmonale Can not exclude underlying CAD Elevated proBNP, probably secondary to a combination of underlying CKD and heart failure Echo: Anterior wall motion abnormalities of the left ventricle and EF: 15-20% Continue aspirin 81 mg GDM T: Carvedilol 3.125 mg b.i.d., losartan 25 mg, Jardiance 10 mg, spironolactone [address] Connor, awaiting recommendations. Patient might benefit from cardiac catheterization but very unlikely that the patient might be able to lie flat in the bed during the procedure. LifeVest Mild hypercalcemia, resolved Probably secondary to hemoconcentration Suspected Acetaminophen Poisoning, ruled out Hypertension: Patient is soft blood pressures therefore does not require any medications in the moment Hyperlipidemia: LDL: 119, LDL goal less than 70, Continue Atorvastatin 40 mg daily. Spinal stenosis: Continue outpatient management with the Code Status: Full code DVT Prophylaxis: SCD Nutrition: Heart healthy diet Anticoagulation: Aspirin Prognosis: Guarded Disposition: Continue care in PCU, awaiting Cardiology recommendations Jojo Valencia MD Internal Medicine, PGY 1 Date of Service: October 28, 2024 Billing Provider: DEBORAH DUONG MD Common Visit Codes: [id number] INP/OBS CARE(HIGH) JOJO VALENCIA, RES October 28, 2024 15:15 DEBORAH DUONG MD Nov 03, 2024 16:27
[2024-10-28 15:29] LABS: D-DIMER 1.67 MG/L FEU (0-0.50)
--- NOTE | 2024-10-28 16:05 | CONSULTATION REPORT ---
History of Present Illness Providers to CC CC: KAT CONNOR MD ~ Reason for Admit\\Admit Dx: Cardiology Consultation Refering MD: Hospitalist/Resident Service History of Present Illness This is a 58-year-old woman with a PMH of HTN presented to the ED with primary complaints of diarrhea and vomiting lasting for the last 12 hours. The patient reported a sudden onset of diarrhea that began at 10:00 p.m. Saturday, along with 5 episodes of vomiting. The stools were green, foul-smelling, and there were no additional factors that aggravated or alleviated her symptoms. She denied any recent travel or consumption of food from outside sources and reported no sick contacts at home. The patient also mentioned experiencing shortness of breath that began after vomiting. She also admits to orthopnea and PND. She denies chest discomfort, palpitations, dizziness, and near-syncope. Cardiology consultation was requested after TTE revealed LVEF 20-25%, down from 67% 01/2024. She denies any recent fever or infections, denies illicit drug use. Of note, she underwent LHC 01/2024 which revealed no obstructive CAD. Allergies: Coded Allergies: codeine (Verified Allergy, Intermediate, RASH, 01/24/24) hydrocodone (Verified Adverse Reaction, Mild, "WIRES ME OUT", 01/24/24) Active prescriptions Cardiac meds: Lasix 20mg BID Losartan 25mg QD Spironolactone 25mg QD ASA 81mg QD Jardiance 10mg QD Atorvastatin 40mg QD Carvedilol 3.125mg BID Home Medications Home Medications Active Lasix (Furosemide) 20 Mg Tablet 20 Mg PO DAILY 30 Days Reported Lexapro* (Escitalopram Oxalate) 5 Mg Tablet 1 Tab PO DAILY 30 Days Melatonin 10 Mg Tablet 1 Tab PO HS 30 Days Acetaminophen 500 Mg Tablet 1 Tab PO Q6H PRN PRN 15 Days Celebrex (Celecoxib) 100 Mg Capsule 200 Mg PO Coreg (Carvedilol) 3.125 Mg Tablet 1 Tab PO Q12H 30 Days Atorvastatin Calcium 10 Mg Tablet 1 Tab PO HS Trazodone HCl 50 Mg Tablet 1 Tab PO HS Baclofen 20 Mg Tablet 1 Tab PO HS VITAMIN E capsule (Vitamin E) 1,000 Unit Capsule 1,000 Unit PO DAILY Past Medical History Medical History Comment Past Medical History Hypertension Possible congestive heart failure Severe muscle spasms Hyperlipidemia Depression Spinal stenosis of lower back Past Surgical History Surgical History Comment [facility] 2023 (no obstructive CAD) Past Social History Social History Comment Social History Comment Smokin-5 cigarettes a day for the past 5 years; quit for for about 10 years prior to that Occasional alcohol use Illicit drugs: Marijuana 4 times a week Physical Exam Last Vital Signs Recorded: Temperature: 97.5, Source: Oral, Heart Rate: 88, Respiratory Rate: 18, BP: 87/41, Pulse Oximetry: 93, Weight: 75.400 General Appearance: alert, no apparent distress EENT: PERRL/EOMI Neck: normal inspection Respiratory: decreased breath sounds, crackles Chest: no accessory muscle use, chest non-tender Cardiovascular: regular rate, rhythm, no edema Peripheral Pulses: 2+ radial (R), 2+ radial (L) Gastrointestinal: bowels sounds present, tenderness (epigastric) Extremities: normal range of motion Skin: normal color, warm/dry Review of Systems All Other Systems at this time: Reviewed and Negative ROS 10 point review of systems completed, all negative except those stated in HPI Results EKG EKG NSR, 69bpm. n/s T-wave abnormalities Echocardiogram Echocardiogram Conclusion Normal LV size and wall thickness. Overall systolic function is severely reduced. Basal LV moves slightly better than mid to distal LV, specifally Anterior Wall. LVEF is 20-25%. Significant change from previous echo 01/24/2024 with EF 67%. Right ventricle is mildly dilated. The right ventricular systolic function is normal. RVSP 52 mmHg. Left atrium is mildly dilated. Right atrium is mildly dilated. Trileaflet AV appears mildly sclerotic without stenosis. No insufficiency. Mitral valve is grossly normal in structure. Mild regurgitation TV appears structurally normal with moderate regurgitation. Normal PV without stenosis with mild insufficiency. Normal pericardium. No effusion. Cardiac Stress Test Cardiac Stress Test N/A X-ray X-ray IMPRESSION: 1. Multifocal pneumonia throughout both lungs. Other Other CT: IMPRESSION: Patchy ground-glass opacities of bilateral lungs which may represent multifocal atypical pneumonia in the right clinical setting with small right and trace left-sided pleural effusion. Mild wall thickening of the ascending colon, transverse colon and rectum. Correlate for mild colitis. Hepatomegaly with hepatic steatosis. Diagram Lab Result Diagram: 10/28/24 0619 10/28/24 0619 Assessment/Plan Additional Plan This is a 58-year-old woman with a PMH of HTN presented to the ED with primary complaints of diarrhea and vomiting lasting for the last 12 hours. Cardiology consultation was requested after TTE revealed LVEF 20-25%, down from 67% 01/2024. She denies any recent fever or infections, denies illicit drug use. Acute Systolic Heart Failure 2/2 Takotsubo's Cardiomyopathy -Continue maximum tolerated GDMT. TTE wall motion consistent with possible Takotsubo's Cardiomyopathy -Losartan -Jardiance -Aldactone -Carvedilol NSTEMI (Type 2) -[facility] 01/2024 revealed no obstructive CAD. -Continue ASA and Atorvastatin The above plan was discussed with supervising physician, Dr. Miranda Connor, who is in agreement. Supervising MD Supervising Physician: ARMEN ElP October 28, 2024 16:05
[2024-10-29] VITALS (23 sets, daily range): BP systolic 107–121; BP diastolic 67–89; PULSE 66–90; RESP 13–20; TEMP 97.3–98.1; O2SAT 92–98
[2024-10-29] MEDS ORDERED: VANCOMYCIN LEVEL IV ONE (07:30)
[2024-10-29] MEDS: furosemide 10 MG/1 ML 10ml inj IV SCH (08:00)
[2024-10-29 08:50] LABS: BASOPHILS % (AUTO) 0.1 % (0-1); EOSINOPHILS % (AUTO) 0 % (0-6); HEMATOCRIT 33.3 % (35.0-45.0); HEMOGLOBIN 11.2 g/dl (12.0-16.0); LYMPHOCYTES % (AUTO) 6.8 % (21-51); MEAN CORPUSCULAR HEMOGLOBIN 35.5 PG (27.0-31.0); MEAN CORPUSCULAR HGB CONC 33.5 g/dL (33.0-36.5); MEAN CORPUSCULAR VOLUME 105.9 FL (78-98); MEAN PLATELET VOLUME 10.5 FL (7.4-10.4); MONOCYTES # (AUTO) 0.5 X10'3 (0-0.9); MONOCYTES % (AUTO) 3.5 % (2-12); NEUTROPHILS # (AUTO) 13.1 X10'3 (1.8-7.7); NEUTROPHILS % (AUTO) 89.6 % (42-75); PLATELET COUNT 156 X10'3 (140-440); RED BLOOD COUNT 3.15 X10'6 (4.20-5.60); RED CELL DISTRIBUTION WIDTH 15.5 % (11.5-14.5); WHITE BLOOD COUNT 14.6 X10'3 (4.5-11.0)
[2024-10-29 09:01] LABS: ALANINE AMINOTRANSFERASE 767 U/L (12-78); ALBUMIN 2.9 G/DL (3.4-5.0); ALBUMIN/GLOBULIN RATIO 0.8 (1.1-1.5); ALKALINE PHOSPHATASE 96 IU/L (46-116); ANION GAP 9 (8-16); ASPARTATE AMINO TRANSFERASE 266 U/L (10-37); BILIRUBIN,TOTAL 0.9 MG/DL (0.1-1.0); BLOOD UREA NITROGEN 29 MG/DL (7-18); BUN/CREATININE RATIO 23.8 (10.0-20.0); CALCIUM 9.1 MG/DL (8.5-10.1); CHLORIDE 100 MMOL/L (99-107); CREATININE 1.22 MG/DL (0.40-0.90); GLUCOSE 120 MG/DL (70-104); POTASSIUM 3.8 MMOL/L (3.5-5.1); SODIUM 138 MMOL/L (135-145); TOTAL CARBON DIOXIDE 28.8 MMOL/L (24-32); TOTAL PROTEIN 6.5 G/DL (6.4-8.2); eCRCL 44 ML/MIN; eGFR 45 ML/MIN
[2024-10-29] MEDS: furosemide 20 MG/2 ML vial IV SCH (11:43)
[2024-10-29] MEDS ORDERED: baclofen 10mg tablet PO PRN (12:00)
--- NOTE | 2024-10-29 14:00 | CONSULTATION REPORT ---
Consult Providers to CC ~ History of Present Illness Reason for Admit\\Complaint: Dyspnea causing acute respiratory failure History of Present Illness 58-year-old female who on Saturday started having some dyspnea but without any cough and without any phlegm. She further denies any wheezing. She then woke up yesterday with recurrent loose bowel movements and projectile vomiting. She could not sleep thereafter and asked the friend to bring it to the hospital. She also confirms that she had orthopnea i.e. lying in recumbent position caused more dyspnea that improved by sitting upright. She did not have any fevers, no chills, no abdominal pain, no hematemesis, no melenic stools, no increased urinary frequency, no dysuria, no polyuria , no polydipsia, no headache, no diplopia, no blurring of vision, no lightheadedness and no dizziness. She was evaluated and diagnosed with pneumonia and is currently under treatment for pneumonia. She is requiring 20 L of oxygen per minute via high-flow nasal cannula with an FiO2 of 60%. I was consulted to see the patient for chest x-ray findings and low oxygen status. Allergies: Coded Allergies: codeine (Verified Allergy, Intermediate, RASH, 01/24/24) hydrocodone (Verified Adverse Reaction, Mild, "WIRES ME OUT", 01/24/24) Home Medications Home Medications Active Lasix (Furosemide) 20 Mg Tablet 20 Mg PO DAILY 30 Days Reported Lexapro* (Escitalopram Oxalate) 5 Mg Tablet 1 Tab PO DAILY 30 Days Melatonin 10 Mg Tablet 1 Tab PO HS 30 Days Acetaminophen 500 Mg Tablet 1 Tab PO Q6H PRN PRN 15 Days Celebrex (Celecoxib) 100 Mg Capsule 200 Mg PO Coreg (Carvedilol) 3.125 Mg Tablet 1 Tab PO Q12H 30 Days Atorvastatin Calcium 10 Mg Tablet 1 Tab PO HS Trazodone HCl 50 Mg Tablet 1 Tab PO HS Baclofen 20 Mg Tablet 1 Tab PO HS VITAMIN E capsule (Vitamin E) 1,000 Unit Capsule 1,000 Unit PO DAILY Past Medical History Past Medical History COPD CHF Coronary artery disease Hyperlipidemia Hypertension Depression Spinal stenosis of the lower back Past Surgical History Surgical History Comment Bilateral TKR Past Social History Social History Comment Quit cigarette smoking about a week ago. Has smoked intermittently for 40 years. She has smoked up to one pack of cigarettes per day at the most. Smokes marijuana intermittently for chronic pain. Drinks alcohol socially. ROS ROS A 14point review of systems was obtained and is as in history of present illness and past medical history. Exam Vitals: Vital Signs Date Time Temp Pulse Resp B/P (MAP) Pulse Ox O2 Delivery O2 Flow Rate FiO2 10/29/24 11:45 18 10/29/24 11:03 86 High Flow Nasal Cannula 20.0 60 10/29/24 11:01 97 10/29/24 11:00 98.1 117/86 (96) General: No distress HEENT: NC/AT, PERRLA, EOMI Neck: Supple with no jugular venous distention and no lymphadenopathy. Chest: Symmetric expansion bilaterally Cardiovascular: Normal S1 and S2 without any S3-S4 gallop. Abdomen: Nondistended, with normoactive bowel sounds soft nontender no organomegaly. Extremities: No cyanosis, no clubbing and no edema. Central Nervous System: Grossly nonfocal. Skin: No rash Diagnostic Data Last Recorded Lab Results: 10/29/24 0825 10/29/24 0825 Diagnostic Data: Laboratory Tests Test 10/25/24 17:52 10/26/24 13:05 10/28/24 13:53 Prothrombin Time 10.8 SECONDS (9.0-12.0) INR International Normalized Ratio 1.1 INR Activated Partial Thromboplast Time 23 SECONDS (22-32) APTT (Heparin Protocol) 64 SECONDS (45-60) H Coagulation Comments D-Dimer 1.67 MG/L FEU (0-0.50) H D-Dimer Comment Additional Plan Acute respiratory failure secondary to a combination of acute CHF and possibly pneumonia. May have aspirated during he had bouts of vomiting. COVID test unremarkable, nor influenza test done. Suggest: Continue to diurese patient for acute CHF and continue current antibiotic therapy. There is definitely an element of acute CHF on the patient's chest x- ray. Titrate oxygen to keep her pulse oximetry reading of at least 88% at all times. We thank you for giving us the opportunity to participate in the evaluation and treatment of your patient and will follow with you. Please do not hesitate to contact us should you have any further questions. SAVITA AMIN MD October 29, 2024 14:00
--- NOTE | 2024-10-29 17:07 | PROGRESS NOTE- Residence ---
Progress Note - Resident Providers to CC Resident Creating Document: JOJO VALENCIA RES CC: DEBORAH DUONG MD ~ Antibiotic Timeout Antibiotic Ordered?: Yes Subjective Patient examined at bedside. Patient feels relatively better, oxygen requirements have come down to 6 L of high-flow. Objective Vital Signs Date Time Temp Pulse Resp B/P (MAP) Pulse Ox O2 Delivery O2 Flow Rate FiO2 10/29/24 15:38 73 17 High Flow Nasal Cannula 6.0 10/29/24 15:29 94 40 10/29/24 11:00 98.1 117/86 (96) Result Diagram: 10/29/2482410/29/24824 General: Alert, awake, oriented, in acute distress HEENT: PERRLA, no icterus, pallor, lymphadenopathy, carotid bruit Respiratory system: Decreased breath sounds, bilateral diffuse crackles heard, basal Creps CVS: S1-S2 heard, no murmurs/rubs/gallop GI: Soft, nontender, no organomegaly, no guarding/rigidity, bowel sounds present Neuro: No focal neurological deficits present Extremities: No edema cyanosis clubbing/deformities Skin: Warm and dry Coagulation Studies Laboratory Tests Test 10/25/24 17:52 10/26/24 13:05 10/28/24 13:53 Prothrombin Time 10.8 SECONDS (9.0-12.0) INR International Normalized Ratio 1.1 INR Activated Partial Thromboplast Time 23 SECONDS (22-32) APTT (Heparin Protocol) 64 SECONDS (45-60) H Coagulation Comments D-Dimer 1.67 MG/L FEU (0-0.50) H D-Dimer Comment Assessment Assessment A 58-year-old female with past medical history of CAD and HTN presented to the ED with complaints of diarrhea and vomitings with the last 12 hours. Patient also reported shortness of breaths. Patient is admitted for the evaluation and management of acute hypoxemic respiratory failure secondary to multifocal pneumonia, sepsis on POA, transaminitis, type 2 [place] Plan Plan Acute Hypoxemic Respiratory Failure Sepsis secondary to multifocal pneumonia. Acute COPD exacerbation CURB-65 Score: 2. Currently on high-flow nasal cannula with oxygen flow rate 6 L/FiO2 40% Elevated WBC, improving, procalcitonin normal, follow up with a repeat lactic acid Blood and urine cultures negative so far IV Methylprednisolone 60 mg Q8H. Continue IV ceftriaxone (day 3/6) and azithromycin course completed DuoNeb q.2 hours p.r.n. and q.4 hours scheduled. Incentive spirometry and flutter valve Elevated D-dimer, follow up with V/Q scan Repeat COVID test Pulmonology recommended to continue the above management Titrate oxygen requirements to SpO2 88% to 92% Acute on Chronic Kidney Disease (CKD) stage IIIB (baseline: 1.05). EGFR: 22 Creatinine, improving Continue to monitor BMP Transaminitis, most likely reactive-improving Mild colitis Downtrending AST and ALT Hepatitis panel negative Continue to monitor cmp Elevated troponins probably secondary to type 2 [place] Acute on chronic worsening of Heart failure with a reduced ejection fraction, EF: 15-20 % Cor pulmonale Can not exclude underlying CAD Elevated proBNP, probably secondary to a combination of underlying CKD and heart failure Echo: Anterior wall motion abnormalities of the left ventricle and EF: 15-20% Continue aspirin 81 mg and atorvastatin 40 mg GDM T: Carvedilol 3.125 mg b.i.d., losartan 25 mg, Jardiance 10 mg, spironolactone [address] Connor recommended its statin and aspirin. LifeVest Mild hypercalcemia, resolved High anion gap lactic acidosis, resolved Suspected Acetaminophen Poisoning, ruled out Hypertension: Patient is soft blood pressures therefore does not require any medications in the moment Hyperlipidemia: LDL: 119, LDL goal less than 70, Continue Atorvastatin 40 mg daily. Spinal stenosis: Continue outpatient management with the Active tobacco use disorder: Nicotine patch Code Status: Full code DVT Prophylaxis: SCD Nutrition: Heart healthy diet Anticoagulation: Aspirin Prognosis: Guarded Disposition: Continue care in PCU, probable discharge in a day or two Jojo Valencia MD Internal Medicine, PGY 1 Date of Service: October 29, 2024 Billing Provider: DEBORAH DUONG MD Common Visit Codes: [id number] INP/OBS CARE(HIGH) JOJO VALENCIA, RES October 29, 2024 17:07 DEBORAH DUONG MD Nov 03, 2024 16:28
--- NOTE | 2024-10-29 19:02 | RADIOLOGY REPORT ---
NUCLEAR MEDICINE VENTILATION/PERFUSION LUNG SCAN. INDICATION: Suspicion of PE, multifocal atypical pneumonia COMPARISON: None TECHNIQUE: Following intravenous demonstration of 4.8 millicuries of technetium 99m MAA, and inhala tion of 37 mCi of Tc 99m DTPA scintigrams were obtained in multiple projections of the lungs. FINDINGS: There is normal uptake of radionuclide on both the ventilation and perfusion portions of the examinat ion. No mismatched perfusion defects are demonstrated. Uptake is normally homogeneous. IMPRESSION: Low probability for PE.
[2024-10-29] MEDS: morphine 4 MG/ML inj SYRINge IV PRN (22:52)
[2024-10-30] VITALS (20 sets, daily range): BP systolic 99–116; BP diastolic 64–80; PULSE 56–88; RESP 12–24; TEMP 97.1–97.7; O2SAT 92–99
[2024-10-30 06:19] LABS: ALANINE AMINOTRANSFERASE 757 U/L (12-78); ALBUMIN 2.8 G/DL (3.4-5.0); ALBUMIN/GLOBULIN RATIO 0.8 (1.1-1.5); ALKALINE PHOSPHATASE 108 IU/L (46-116); ANION GAP 8 (8-16); ASPARTATE AMINO TRANSFERASE 233 U/L (10-37); BILIRUBIN,TOTAL 0.7 MG/DL (0.1-1.0); BLOOD UREA NITROGEN 37 MG/DL (7-18); BUN/CREATININE RATIO 26.1 (10.0-20.0); CALCIUM 9.2 MG/DL (8.5-10.1); CHLORIDE 99 MMOL/L (99-107); CREATININE 1.42 MG/DL (0.40-0.90); GLUCOSE 167 MG/DL (70-104); POTASSIUM 3.4 MMOL/L (3.5-5.1); SODIUM 138 MMOL/L (135-145); TOTAL CARBON DIOXIDE 30.8 MMOL/L (24-32); TOTAL PROTEIN 6.3 G/DL (6.4-8.2); eCRCL 38 ML/MIN; eGFR 38 ML/MIN
[2024-10-30 06:22] LABS: BASOPHILS % (AUTO) 0.1 % (0-1); EOSINOPHILS % (AUTO) 0 % (0-6); HEMATOCRIT 32.3 % (35.0-45.0); HEMOGLOBIN 10.7 g/dl (12.0-16.0); LYMPHOCYTES % (AUTO) 7.5 % (21-51); MEAN CORPUSCULAR HGB CONC 33.2 g/dL (33.0-36.5); MEAN CORPUSCULAR VOLUME 105.5 FL (78-98); MEAN PLATELET VOLUME 10.9 FL (7.4-10.4); MONOCYTES # (AUTO) 0.4 X10'3 (0-0.9); MONOCYTES % (AUTO) 3.3 % (2-12); NEUTROPHILS # (AUTO) 11.9 X10'3 (1.8-7.7); NEUTROPHILS % (AUTO) 89.1 % (42-75); PLATELET COUNT 181 X10'3 (140-440); RED BLOOD COUNT 3.06 X10'6 (4.20-5.60); RED CELL DISTRIBUTION WIDTH 15.3 % (11.5-14.5); WHITE BLOOD COUNT 13.3 X10'3 (4.5-11.0)
[2024-10-30] MEDS: nicotine 14mg patch - 24hr TD SCH (09:44)
[2024-10-30] MEDS ORDERED: potassium Cl 20 mEq SR tablet PO PRN (11:45)
[2024-10-30] MEDS ORDERED: potassium Cl 40MEQ/1/2NS 520ml 520 ML IV PRN (11:45)
[2024-10-30] MEDS ORDERED: magnesium Cl slow-release 64mg tablet PO PRN (11:45)
[2024-10-30] MEDS ORDERED: magnesium sulf-water 4G/100mL 100 ML IV PRN (11:45)
[2024-10-30] MEDS ORDERED: magnesium sulf-water 2g/50mL 50 ML IV PRN (11:45)
[2024-10-30] MEDS: potassium Cl 20 mEq SR tablet PO PRN (15:26)
--- NOTE | 2024-10-30 16:53 | PROGRESS NOTE- Residence ---
Progress Note - Resident Providers to CC Resident Creating Document: RUSS CHOI, KAREN ~ Antibiotic Timeout Antibiotic Ordered?: Yes Subjective Patient examined at bedside. She tells me that she slept about 3 hours in the night but feels lot better. oxygen requirements have come down to 3-4 L. Patient has mild hypokalemia and she does not feel strong enough to go home yet. Anticipated discharge tomorrow. Discharge to home with home health. Objective Vital Signs Date Time Temp Pulse Resp B/P (MAP) Pulse Ox O2 Delivery O2 Flow Rate FiO2 10/30/24 15:36 66 16 Nasal Cannula 2.0 10/30/24 15:28 99 32 10/30/24 15:00 97.7 103/64 (77) Result Diagram: 10/30/24 0509 10/30/24 0509 General: Alert, awake, oriented, in acute distress HEENT: PERRLA, no icterus, pallor, lymphadenopathy, carotid bruit Respiratory system: Decreased breath sounds, bilateral diffuse crackles heard, basal Creps CVS: S1-S2 heard, no murmurs/rubs/gallop GI: Soft, nontender, no organomegaly, no guarding/rigidity, bowel sounds present Neuro: No focal neurological deficits present Extremities: No edema cyanosis clubbing/deformities Skin: Warm and dry Coagulation Studies Laboratory Tests Test 10/25/24 17:52 10/26/24 13:05 10/28/24 13:53 Prothrombin Time 10.8 SECONDS (9.0-12.0) INR International Normalized Ratio 1.1 INR Activated Partial Thromboplast Time 23 SECONDS (22-32) APTT (Heparin Protocol) 64 SECONDS (45-60) H Coagulation Comments D-Dimer 1.67 MG/L FEU (0-0.50) H D-Dimer Comment Assessment Assessment A 58-year-old female with past medical history of CAD and HTN presented to the ED with complaints of diarrhea and vomitings with the last 12 hours. Patient also reported shortness of breaths. Patient is admitted for the evaluation and management of acute hypoxemic respiratory failure secondary to multifocal pneumonia, sepsis on POA, transaminitis, type 2 [place] Plan Plan Acute Hypoxemic Respiratory Failure Sepsis secondary to multifocal pneumonia. Acute COPD exacerbation CURB-65 Score: 2. Currently on high-flow nasal cannula with oxygen flow rate 6 L/FiO2 40% Elevated WBC, improving, procalcitonin normal, follow up with a repeat lactic acid Blood and urine cultures negative so far IV Methylprednisolone 60 mg Q8H. Continue IV ceftriaxone (day 3/6) and azithromycin course completed DuoNeb q.2 hours p.r.n. and q.4 hours scheduled. Incentive spirometry and flutter valve Elevated D-dimer, follow up with V/Q scan Pulmonology recommended to continue the above management Titrate oxygen requirements to SpO2 88% to 92% 10/30/2024: Anticipated discharge tomorrow with oral antibiotic and steroid taper regimen Acute on Chronic Kidney Disease (CKD) stage IIIB (baseline: 1.05). EGFR: 22 Creatinine, improving Continue to monitor BMP Transaminitis, most likely reactive-improving Mild colitis Downtrending AST and ALT Hepatitis panel negative Continue to monitor cmp Elevated troponins probably secondary to type 2 [place] Acute on chronic worsening of Heart failure with a reduced ejection fraction, EF: 15-20 % Cor pulmonale Can not exclude underlying CAD Elevated proBNP, probably secondary to a combination of underlying CKD and heart failure Echo: Anterior wall motion abnormalities of the left ventricle and EF: 15-20% Continue aspirin 81 mg and atorvastatin 40 mg GDM T: Carvedilol 3.125 mg b.i.d., losartan 25 mg, Jardiance 10 mg, spironolactone [address] Connor recommended its statin and aspirin. LifeVest ordered by telephonic case manager. Mild hypercalcemia, resolved High anion gap lactic acidosis, resolved Suspected Acetaminophen Poisoning, ruled out Hypertension: Patient is soft blood pressures therefore does not require any medications in the moment Hyperlipidemia: LDL: 119, LDL goal less than 70, Continue Atorvastatin 40 mg daily. Spinal stenosis: Continue outpatient management with the Active tobacco use disorder: Nicotine patch Code Status: Full code DVT Prophylaxis: SCD Nutrition: Heart healthy diet Anticoagulation: Aspirin Prognosis: Guarded Disposition: Continue care in PCU, probable discharge tomorrow Russ Carver MD Internal Medicine, PGY 1 Date of Service: October 30, 2024 Billing Provider: DEBORAH DUONG MD Common Visit Codes: [id number] INP/OBS CARE(HIGH) RUSS CHOI, RES October 30, 2024 16:53 DEBORAH DUONG MD Nov 03, 2024 16:28
[2024-10-30] MEDS: K and/or MAG REPLACEMENT MC SCH (20:00)
[2024-10-31] VITALS (10 sets, daily range): BP systolic 105–142; BP diastolic 62–88; PULSE 54–72; RESP 12–70; TEMP 97.6; O2SAT 96–98
[2024-10-31 08:23] LABS: BASOPHILS % (AUTO) 0.1 % (0-1); EOSINOPHILS % (AUTO) 0.1 % (0-6); HEMOGLOBIN 11.5 g/dl (12.0-16.0); LYMPHOCYTES # (AUTO) 1.2 X10'3 (1.1-4.8); LYMPHOCYTES % (AUTO) 7.9 % (21-51); MEAN CORPUSCULAR HEMOGLOBIN 34.9 PG (27.0-31.0); MEAN CORPUSCULAR HGB CONC 32.9 g/dL (33.0-36.5); MEAN CORPUSCULAR VOLUME 106.1 FL (78-98); MEAN PLATELET VOLUME 10.6 FL (7.4-10.4); MONOCYTES # (AUTO) 0.8 X10'3 (0-0.9); MONOCYTES % (AUTO) 4.9 % (2-12); NEUTROPHILS # (AUTO) 13.3 X10'3 (1.8-7.7); PLATELET COUNT 214 X10'3 (140-440); RED CELL DISTRIBUTION WIDTH 15.3 % (11.5-14.5); WHITE BLOOD COUNT 15.2 X10'3 (4.5-11.0)
[2024-10-31 08:47] LABS: ALANINE AMINOTRANSFERASE 653 U/L (12-78); ALBUMIN/GLOBULIN RATIO 0.7 (1.1-1.5); ALKALINE PHOSPHATASE 106 IU/L (46-116); ANION GAP 8 (8-16); ASPARTATE AMINO TRANSFERASE 144 U/L (10-37); BILIRUBIN,TOTAL 0.7 MG/DL (0.1-1.0); BLOOD UREA NITROGEN 33 MG/DL (7-18); BUN/CREATININE RATIO 31.1 (10.0-20.0); CALCIUM 9.5 MG/DL (8.5-10.1); CHLORIDE 104 MMOL/L (99-107); CREATININE 1.06 MG/DL (0.40-0.90); GLUCOSE 126 MG/DL (70-104); POTASSIUM 4.1 MMOL/L (3.5-5.1); SODIUM 143 MMOL/L (135-145); TOTAL PROTEIN 7.1 G/DL (6.4-8.2); eCRCL 51 ML/MIN; eGFR 53 ML/MIN
[2024-10-31] MEDS ORDERED: LOSA25TA41 PO (10:31)
[2024-10-31] MEDS ORDERED: CEFD300C3 PO (10:31)
[2024-10-31] MEDS ORDERED: ALBU90AE INH (10:31)
[2024-10-31] MEDS ORDERED: EMPA10TA PO (10:31)
[2024-10-31] MEDS ORDERED: PRED10TA23 PO (10:31)
[2024-10-31] MEDS ORDERED: FURO-150 PO (10:31)
[2024-10-31] MEDS ORDERED: SPIR25TA PO (10:31)
[2024-10-31] MEDS ORDERED: ASPI-1071 PO (10:31)
[2024-10-31] MEDS ORDERED: LACT1CAP26 PO (10:31)
[2024-10-31] MEDS ORDERED: ATOR20TA66 PO (10:35)
[2024-10-31] MEDS: HYDROcodone/acetaminophen 5mg/325mg tablet PO PRN (10:49)
--- NOTE | 2024-10-31 19:01 | DISCHARGE SUMMARY-Residence ---
Discharge Summary Providers to CC Resident Creating Document: JOJO VALENCIA, RES CC: DEBORAH DUONG MD ~ Discharge Summary Assessment A 58-year-old female with past medical history of CAD and HTN presented to the ED with complaints of diarrhea and vomitings with the last 12 hours. Patient also reported shortness of breaths. Patient is admitted for the evaluation and management of acute hypoxemic respiratory failure secondary to multifocal pneumonia, sepsis on POA, transaminitis, type 2 [place] Admission Diagnosis: SOB Hospital Course DATE OF ADMISSION: 10/25/24 DATE OF DISCHARGE: 10/31/24 Discharge Diagnosis\Comment: Acute hypoxemic respiratory failure sepsis secondary to multifocal pneumonia acute exacerbation of COPD Acute on chronic kidney disease stage IIIB Transaminitis, most likely reactive Mild colitis Elevated troponins probably secondary to type 2 [place] Cor pulmonale Can not exclude underlying CAD Acute on chronic worsening of heart failure with reduced ejection fraction of 15-20% Mild hypercalcemia, resolved High anion gap lactic acidosis, resolved Hypertension Hyperlipidemia Spinal stenosis Active tobacco use disorder Operations\Procedures: None Consultants: None Complications: None Condition on DC: Stable New Medications: Albuterol Sulfate (Proair Respiclick) 90 Mcg Aer.pow.ba 2 PUFFS INH Q4HPRN PRN for shortness of breath for 10 Days, #1 EA 0 Refills Cefdinir* (Cefdinir*) 300 Mg Capsule 1 CAP PO Q12H for 3 Days, #6 CAP Lactobacillus Rhamnosus (Culturelle) 10 Billion Cell Capsule 1 CAP PO BID for 30 Days, #60 CAP 0 Refills Prednisone (Prednisone) 10 Mg Tablet 0 PO DAILY, #42 TAB Take 4 tabs daily x4 days, then 3 daily x4 days 2 daily x4 days 1 daily x4 days 1/2 daily x4 days then STOP Aspirin (Ecotrin*) 81 Mg Tablet.dr 1 TAB PO DAILY for 30 Days, #30 TAB.SR Empagliflozin (Jardiance) 10 Mg Tablet 10 MG PO DAILY for 30 Days, #30 TAB Losartan Potassium (Losartan Potassium) 25 Mg Tablet 25 MG PO DAILY for 30 Days, #30 TAB Spironolactone (Aldactone) 25 Mg Tablet 25 MG PO DAILY@0830 for 30 Days, #30 TAB Changed Medications: Atorvastatin Calcium (LIPITOR tablet) 20 Mg Tablet 40 MG PO DAILY for 30 Days, #60 TAB (Changed from: Atorvastatin Calcium 10 Mg Tablet 1 Tab PO HS) Furosemide (Lasix) 20 Mg Tablet 20 MG PO BID for 30 Days, #60 TAB (Changed from: DAILY; 30) Continued Medications: Acetaminophen (Acetaminophen) 500 Mg Tablet 1 TAB PO Q6H PRN PRN for pain or fever for 15 Days, #60 TAB Baclofen (Baclofen) 20 Mg Tablet 1 TAB PO HS Carvedilol (Coreg) 3.125 Mg Tablet 1 TAB PO Q12H for 30 Days, #60 TAB Celecoxib (Celebrex) 100 Mg Capsule 200 MG PO, CAP Escitalopram Oxalate* (Lexapro*) 5 Mg Tablet 1 TAB PO DAILY for 30 Days, #30 TAB Melatonin (Melatonin) 10 Mg Tablet 1 TAB PO HS for sleep for 30 Days, #30 TAB 0 Refills Trazodone HCl (Trazodone HCl) 50 Mg Tablet 1 TAB PO HS for protocol Vitamin E (VITAMIN E capsule) 1,000 Unit Capsule 1000 UNIT PO DAILY, CAP Discharge Summary: A 58-year-old female with past medical history of CAD, HTN presented to the ED with complaints of diarrhea and vomitings within the last 12 hours of admission. Patient also reported shortness of breaths. On further investigations patient was found to have low saturations on room air, and multifocal pneumonia on imaging with elevated WBC count and low blood pressure readings indicating sepsis POA. Patient was simultaneously started on antibiotics, nebulization, steroids, evaluated for COVID which was eventually negative. While being treated about the same patient had to be supplemented with a high-flow nasal cannula with increased oxygen requirements despite adequate therapy as above and RT sessions with nebulization and incentive spirometry. Therefore pulmonology was consulted who recommended to continue the same management. Pulmonary embolism was ruled out with V/Q scan. Patient gradually improved. At the time of admission patient also had elevated troponins that eventually downtrended all with the patient was started on heparin drip with a it was later discontinued after about a day and half. Eventually on echo patient was found to have wall motion abnormalities with reduced ejection fraction, Cardiology was consulted who diagnosed Takotsubo's cardiomyopathy and recommended conservative management and outpatient consult. Patient also had elevated liver enzymes that started to downtrend as the patient started feeling better which indicated was most likely secondary to reactive infection. Patient also had elevated lactic acidosis with high anion gap which was treated with IV fluids that gradually improved. Patient was also given Lasix 20 mg daily in view of heart failure exacerbation. Patient's other medical conditions were managed as per home meds. Patient gradually improved and is being sent home on 3 L home oxygen. Patient is hemodynamically stable for discharge. Physical examination at discharge General: Alert, awake, oriented, in acute distress HEENT: PERRLA, no icterus, pallor, lymphadenopathy, carotid bruit Respiratory system: Bilateral breath sounds heard, bilateral diffuse crackles heard, basal Creps (improved) CVS: S1-S2 heard, no murmurs/rubs/gallop GI: Soft, nontender, no organomegaly, no guarding/rigidity, bowel sounds present Neuro: No focal neurological deficits present Extremities: No edema cyanosis clubbing/deformities Skin: Warm and dry Labs at discharge: WBC: 15.2, H/H: 11.5/35, platelet count: 240 Sodium: 143, potassium: 4.1, BUN: 33, creatinine: 1.06 Imaging: V/Q scan:Low probability for PE. Echo: Overall systolic function is severely reduced. Basal LV moves slightly better than mid to distal LV, specifally Anterior Wall. LVEF is 20-25%. Significant change from previous echo 01/24/2024 with EF 67%. Right ventricle is mildly dilated. The right ventricular systolic function is normal. RVSP 52 mmHg. Arterial ultrasound: . Bilateral dorsalis pedis arteries not imaged. Otherwise, no evidence of high-grade stenosis or occlusion in the bilateral lower extremities. Triphasic normal waveforms in both lower extremities. Chest/abdomen/pelvis CT: Patchy ground-glass opacities of bilateral lungs which may represent multifocal atypical pneumonia in the right clinical setting with small right and trace left-sided pleural effusion. Mild wall thickening of the ascending colon, transverse colon and rectum. Correlate for mild colitis. Hepatomegaly with hepatic steatosis. Chest x-ray:Multifocal pneumonia throughout both lungs. 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 We started you on some heart failure medications in view of reduced ejection fraction please maintain compliance: Losartan, Jardiance, carvedilol, spironolactone Take Lasix twice daily for the 1st week followed by as needed. Please check your weight and with increase in weight or increasing shortness of breaths please take Lasix twice daily otherwise good down and take it as needed was Incentive spirometry regularly We gave you prednisolone as a tapered please continue as instructed:Take 4 tabs daily x4 days, then 3 daily x4 days 2 daily x4 days 1 daily x4 days 1/2 daily x4 days then STOP Please wear your LifeVest religiously in view of reduced ejection fraction. Continue taking aspirin and atorvastatin We are sending you on oxygen 3 L Return to ER or call 911 in view of sudden onset of chest pain, palpitations, shortness of breaths *Problems/Diagnosis: (1) Respiratory distress Status: Acute (2) Pneumonia Status: Acute Total Time Spent on D/C: > 30 Minutes Date of Service: October 31, 2024 Billing Provider: DEBORAH DUONG MD Common Visit Codes: [id number] DISCH DAY >30min JOJO VALENCIA, RES October 31, 2024 19:01 DEBORAH DUONG MD Nov 03, 2024 16:28
== END 2024-10-31 16:16 | disposition home health service (06) | DRG 871 ==
LOC: ER 17:05 → ED HOLD 19:23 → EDBEDREQ 20:40 → EDBEDREQSVC 23:09 → PCU 3S 10-26 00:52
PROVIDERS: ADMIT Internal Medicine; ATTEND Internal Medicine
PROC: BW251ZZ Computerized Tomography (CT Scan) of Chest, Abdomen and Pelvis using Low Osmolar Contrast (ICD-10-PCS; principal; 2024-10-25)
PROC: 5A0945A Assistance with Respiratory Ventilation, 24-96 Consecutive Hours, High Flow/Velocity Cannula (ICD-10-PCS; 2024-10-26)
PROC: CB121ZZ Planar Nuclear Medicine Imaging of Lungs and Bronchi using Technetium 99m (Tc-99m) (ICD-10-PCS; 2024-10-29)
DX: A41.9 Sepsis, unspecified organism (principal); I21.A1 Myocardial infarction type 2; J18.9 Pneumonia, unspecified organism; J96.01 Acute respiratory failure with hypoxia; I50.23 Acute on chronic systolic (congestive) heart failure; N17.9 Acute kidney failure, unspecified; I51.81 Takotsubo syndrome; J44.0 Chronic obstructive pulmonary disease with (acute) lower respiratory infection; E87.20 Acidosis, unspecified; E87.3 Alkalosis; J44.1 Chronic obstructive pulmonary disease with (acute) exacerbation; I13.0 Hypertensive heart and chronic kidney disease with heart failure and stage 1 through stage 4 chronic kidney disease, or unspecified chronic kidney disease; Z20.822 Contact with and (suspected) exposure to COVID-19; K52.9 Noninfective gastroenteritis and colitis, unspecified; E78.5 Hyperlipidemia, unspecified; F17.210 Nicotine dependence, cigarettes, uncomplicated; G89.29 Other chronic pain; I25.10 Atherosclerotic heart disease of native coronary artery without angina pectoris; Z96.653 Presence of artificial knee joint, bilateral; F32.A Depression, unspecified; E83.52 Hypercalcemia; N18.32 Chronic kidney disease, stage 3b; E87.6 Hypokalemia; I27.81 Cor pulmonale (chronic); Z79.899 Other long term (current) drug therapy; Z88.5 Allergy status to narcotic agent
CPT/HCPCS: 36415; 36600; 71046; 71250; 74176; 78582; 80053; 80061; 80202; 80329; 81001; 82330; 82565; 82607; 82728; 82803; 83036; 83540; 83550; 83605; 83690; 83735; 83880; 83930; 83970; 84132; 84145; 84484; 85008; 85018; 85025; 85379; 85610; 85730; 86705; 86709; 86803; 87040; 87045; 87046; 87081; 87207; 87324; 87340; 87449; 87522; 87811; 89055; 93005; 93306; 93925; 94640; 94760; 96361; 96365; 96375; 97110; 97116; 97161; 97530; 99285; A9539; A9540; G0378; J0456; J0696; J1644; J1938; J1940; J2270; J2405; J2543; J2919; J3370; J3420; J3490; J7030; J7050; J7070